=== PATIENT | female | born 2000 | race Asian ===

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

== ENCOUNTER 2022-04-16 10:55 | Emergency (ER) | payer OTHER, SELFPAY ==
[2022-04-16 10:56] VITALS: BP 106/73; PULSE 61; RESP 17; TEMP 36.7; O2SAT 99; BMI 20.5
--- NOTE | 2022-04-16 11:04 | ED.RN ---
PT CURRENTAY IN PERIOD. REPORTS ABD PAIN FEELS LIKE CRAMPING. FEELS SAME NORMAL PERIODS. PAIN GOES AWAY WITH ADVIL BUT DID NOT TAKE ANY TODAY.
--- NOTE | 2022-04-16 11:13 | EDS_ITS ---
HPI History of Present Illness Chief Complaint: Abd Pain Detail of Chief Complaint: Crampy abdominal pain Informant: patient Onset/Context/Timing Onset: Days Context: Sudden Onset Timing: Continuous and Waxes and wanes Quality: Crampy Location: Upper abdomen Current Severity: Mild Maximum Severity: Moderate Worsened by: Possibly menses Relieved by: Ibuprofen yesterday has not taken ibuprofen today Associated Symptoms Associated Symptoms: Mild nausea Narrative Narrative: Patient is a 21-year-old woman who presents with crampy abdominal pain. She denies food intolerance. She denies respiratory or cardiac symptoms. There is no known family history of cholelithiasis. She is presently on her menses. Menses started Saturday. She does get cramping pain with menses. She denies vaginal discharge. She denies diss urea, hematuria or frequency. Prior similar symptoms: No Recent Illness/Hospitalization: No PFSH PFSH Medical History Anxiety Depression Allergy/AdvReac Type Severity Reaction Status Date / Time No Known Allergies Allergy Verified 04/16/22 11:05 Family History no significant family his no significant family history Surgical History no surgical history no surgical history Social History (Updated 04/16/22 @ 11:[address] Moises Nugent MD) household members: family Smoking Status: Never smoker substance use type: does not use ROS ROS ED Constitutional Constitutional ED: Reports fever(s) and subjective; Denies chills, sweats or weight loss Eyes Eyes: Denies blurry vision, change in vision or diplopia ENT ENT ED: Denies ear pain, rhinorrhea or sore throat Cardiovascular Cardiovascular: Denies chest pain or palpitations Respiratory/Chest Respiratory/Chest: Denies cough, dyspnea or dyspnea on exertion Gastrointestinal Gastrointestinal: Reports abdominal pain and nausea; Denies constipation, diarrhea, melena or vomiting Genitourinary Genitourinary ED: Reports LMP (females 10-50) Details: Comment: (On menses.); Denies dysuria, hematuria or urinary frequency Musculoskeletal Musculoskeletal: Denies arthralgias, back pain, myalgias or neck pain Integumentary Denies abscess, Abrasions or rash Neurologic Neurologic: Denies paresthesias or weakness Hematologic/Lymphatic Hematologic/Lymphatic: Denies easy bleeding or easy bruising EXAM Physical Exam Const Vital Signs: 04/16/22 10:56 Temperature 98.1 F Temperature Source Oral Pulse Rate 61 Respiratory Rate 17 Blood Pressure 106/73 Blood Pressure Mean 84 Pulse Ox 99 Oxygen Delivery Method Room Air Positive well nourished and well developed General Appearance ED: well developed and NAD; Negative for cyanotic or diaphoretic HEENT Reports moist mucous membranes HEENT Narrative: Head is atraumatic normocephalic. Ears normal. Nares patent. Uvula is midline. There is no erythema or exudate the posterior pharynx. Eyes PERRL and EOMs intact bilaterally General Eye ED: Negative for pale conjunctiva or scleral icterus Neck no lymphadenopathy and supple Resp normal respiratory effort and clear to auscultation bilaterally Cardio regular rate, regular rhythm, S1 normal heart sound, S2 normal heart sound and no murmurs GI normal to inspection, nondistended, normoactive bowel sounds, non-tender, non- distended and no masses; Negative for hepatosplenomegaly Palpation: soft Back/Spine no CVA tenderness Extremity normal to inspection General Extremety ED: Negative for edema or tenderness General Extremity: Negative for edema Neuro oriented x3, CN's II-XII intact bilaterally and no sensory deficits noted Sensorium / Orientation: alert Psych mental status grossly normal Skin no rashes or lesions noted, no wounds and skin turgor normal MDM MDM MDM Narrative Medical decision making narrative: We will obtain test. Will obtain CBC to assess white count differential. Patient and father are refusing any blood work. Since patient has a benign exam and gets cramps when she is menstruating will allow patient to go home with appropriate home-going instructions Discharge Plan Triage Chief Complaint: Abd Pain ED Provider: Moises Nugent Dx/Rx/DC Orders Clinical Impression: Crampy pain associated with menses Instructions: ED MENSTRUAL CRAMPING Referrals: Maria C Sarmiento MD [Med Staff - Active Staff] - 3-5 Days if not improving Activity Restrictions/Additional Instructions: Take ibuprofen for menstrual cramps Disposition Disposition: Home, Self Care
--- NOTE | 2022-04-16 11:22 | ED.RN ---
PT DAD STATES ITS JUST HER PERIOD SHE FINE SHES COMPLETELY FINE. THIS NURSE EXPLAINED TO DAD THAT PT NEEDS TO MAKE DECISIONS FOR HER CARE D/T AGE. PT DECLINING IV AND BLOODWORK. DISCUSSED REASONING FOR ORDERS. CONTINUES TO DECLINE
--- NOTE | 2022-04-16 11:31 | NURSING ---
PT DECLINED LAB WORK. REPORTED TO DR SALEEM.
[2022-04-16 11:35] VITALS: BP 104/74; PULSE 62; RESP 20; O2SAT 98
== END 2022-04-16 11:38 | disposition home or self-care (01) ==
PROVIDERS: Emergency Provider Emergency Medicine; Visit Provider Emergency Medicine
DX: R10.9 Unspecified abdominal pain (principal)
CPT/HCPCS: 99284

== ENCOUNTER → 2025-05-21 | Outpatient (CLI) | payer MEDICAID, SELFPAY ==
--- NOTE | 2025-05-21 17:36 | CT_ITS ---
PROCEDURE: SOFT TISSUE NECK WITH CONTRAST 05/21/2025 REASON FOR EXAM: LOCALIZED SWELLING, MASS, AND LUMP OF NECK TECHNIQUE: Procedure Code: CTNEW Modality: CT Procedure: SOFT TISSUE NECK WITH CONTRAST CONTRAST: Isovue 370 VOLUME: 75 mL One or more dose reduction techniques were used (e.g., Automated exposure control, adjustment of the mA and/or kV according to patient size, use of iterative reconstruction technique). RADIATION DOSE SUMMARY: CTDlvol: 13.87 mGy DLP: 367.38 mGycm COMPARISON: None. FINDINGS: Airway: Midline and patent. Salivary glands: Unremarkable. Lymph nodes: No cervical lymphadenopathy. Thyroid: Unremarkable. Vasculature: Carotid arteries and internal jugular veins are unremarkable. Orbits: Unremarkable at visualized levels. Paranasal sinuses and mastoids: Grossly clear at visualized levels. Lung apices: Clear. Upper mediastinum: Visualized mediastinum is unremarkable. Bones: Unremarkable. Other: CT/Soft Tissue Neck WITH Contrast IMPRESSION: Unremarkable with the CT neck. Reading Location: [id number]
--- OUTSIDE RECORDS SUMMARY | 2025-05-21 17:37 | XMS RPT_ITS | CCD ---
Author Organization [facility] Care Team Providers Care Food Service Clerk Name Role Phone Sheets Anette THOMAS Primary Care Provider SHEETSANETTE Attending Unavailable SHEETS, ANETTE Ramirez Primary Care Unavailable Sheets Anette THOMAS Primary Care Provider SHEETS, ANETTE Ramirez Primary Care Unavailable ADRIANA GALEANO Attending Unavailable ALEXANDRA MEADOWS Referring Unavailable SHEETS, ANETTE Ramirez Primary Care Unavailable SHEETS, ANETTE Ramirez Primary Care Unavailable SHEETS, ANETTE Ramirez Primary Care Unavailable Medications Current Medications Medication Drug Class(es) Dates Sig (Normalized) Sig (Original) amoxicillin 875 mg / clavulanate 125 mg oral tablet (1 source) Penicillin-class Antibacterial Start: 06-11-2022 End: 06-18-2022 take 1 tablet by mouth twice daily amoxicillin-clavul anic acid (AUGMENTIN) 875-125 mg per tablet Indications: Post-nasal drainage Take 1 tablet by mouth twice daily for 7 days. 14 tablet 0 06/11/2022 06/18/2022 Active Comment on above: Take 1 tablet by [facility] twice daily for 7 days. ARIPiprazole 5 mg oral tablet (10 sources) Atypical Antipsychotic Start: 02-22-2022 take 1 tablet by mouth once daily ARIPiprazole (ABILIFY) 5 mg tablet Take 5 mg by mouth once daily. 02/22/2022 Active Comment on above: Take 5 mg by mouth o nce daily. benzonatate 100 mg oral capsule (1 source) Non-narcotic Antitussive Start: 01-18-2025 End: 01-25-2025 take 1 capsule by mouth every eight hours as needed benzonatate (TESSALON PERLE) 100 mg capsule Take 1 capsule by mouth three times a day as needed for cough for up to 7 days. 21 capsule 01/18/2025 01/25/2025 Active cetirizine hydrochloride 10 mg oral tablet (1 source) Histamine-1 Receptor Antagonist Start: 01-18-2025 End: 01-25-2025 take 1 tablet by mouth once daily cetirizine (ZYRTEC) 10 mg tablet Take 1 tablet by mouth once daily for 7 days. 7 tablet 01/18/2025 01/25/2025 Active ibuprofen 400 mg oral tablet (4 sources) Nonsteroidal Anti-inflammatory Drug Start: 10-30-2024 End: 10-30-2024 take 1 tablet by mouth every eight hours as needed ibuprofen (MOTRIN) 400 mg tablet Take 1 tablet by mouth every 8 hours as needed for pain or fever (specify temp.) (menstrual cramps, headache). 30 tablet 11 10/30/2024 Active predniSONE 20 mg oral tablet (1 source) Start: 07-16-2024 End: 07-21-2024 take 2 tablets by mouth once daily predniSONE (DELTASONE) 20 mg tablet Indications: Laryngitis Take 2 tablets by mouth once daily for 5 days. 10 tablet 07/16/2024 07/21/2024 Active Completed/Discontinued Medications Medication Drug Class(es) Dates Sig (Normalized) Sig (Original) doxycycline hyclate 100 mg oral tablet (1 source) Tetracycline-clas s Drug Start: 10-01-2023 End: 10-08-2023 take 1 tablet by mouth twice daily doxycycline (VIBRA-TABS) 100 mg tablet Take 1 tablet by mouth two times a day for 7 days. 14 tablet 10/01/2023 10/08/2023 Problems Problem Classification Problem Date Documented Da te Episodic/Chronic Anxiety disorders (1 source) Generalized anxiety disorder; Translations: [Generalized anxiety disorder] Chronic Disorders usually diagnosed in infancy, childhood, or adolescence (1 source) Tic disorder; Translations: [Tic disorder, unspecified] Chronic Genitourinary symptoms and ill-defined conditions (1 source) Intermittent urinary incontinence; Translations: [Unspecified urinary incontinence] Chronic Menstrual disorders (1 source) Menstrual cramp; Translations: [Dysmenorrhea, unspecified] Chronic Other lower respiratory disease (3 sources) Cough; Translations: [Acute cough] Episodic Other upper respiratory infections (5 sources) Nasal discharge; Translations: [Postnasal drip] Onset: 01-18-2025 Episodic Unclassified (1 source) Post-viral cough syndrome; Translations: [Post-viral cough syndrome] Onset: 07-16-2024 Viral infection (1 source) Viral disease; Translations: [Viral infection, unspecified] 07-13-2024 Episodic Results Test Name Value Interpretation Reference Range Facility CNOVon 01-18-2025 CNOV Office Visit ([facility] ) LAILA RAMEY ([id number]) 2 F Date Time Provider Department 01/18/25 1:45 PM ADRIANA GALEANO [facility] During your visit today, we recorded the following information about you: Temperature Pulse Respiration Blood pressure 98.5 degrees 96/minute 16/minute 102/64 Weight 59.7 kg Adriana Galeano, KRISHAN.SMELLER 01/18/2025 1:46 PM Signed [facility] Subjective Laila Ramey is a 24 year old female. Patient presents with: Nasal Congestion: drainage, productive cough x 5 days HPI Nontoxic-appearing 24-year-old female presents urgent care chief complaint cough sinus drainage fatigue. Duration of symptoms 5 days. Associated symptoms listed above. Most bothersome symptom today is cough. OTC medications none. Sick contacts unknown. No chest pain shortness pleuritic pain. No fevers. Is not . Is not breast-feeding past medical history prescription medications allergies reviewed Review of Systems Constitutional: Negative for chills, diaphoresis, fatigue and fever. HENT: Positive for congestion, rhinorrhea and sore throat. Negative for drooling, ear discharge, ear pain, sinus pressure, sinus pain, sneezing and trouble swallowing. Eyes: Negative for pain, discharge, redness, itching and visual disturbance. Respiratory: Positive for cough. Negative for chest tightness, shortness of breath and wheezing. Cardiovascular: Negative for chest pain. Gastrointestinal: Negative for abdominal distention, abdominal pain, blood in stool, constipation, diarrhea, nausea and vomiting. Genitourinary: Negative for difficulty urinating and dysuria. Musculoskeletal: Negative for arthralgias, joint swelling, neck pain and neck stiffness. Skin: Negative for rash. Neurological: Positive for headaches. Negative for dizziness, weakness and numbness. Objective BP 102/64 Pulse 96 Temp 36.9 ?C (98.5 ?F) Resp 16 Wt 59.7 kg (131 lb 9.8 oz) SpO2 98% BMI 24.47 kg/m? Physical Exam Constitutional: Appearance: Normal appearance. HENT: Head: Normocephalic. Jaw: No trismus, tenderness, swelling or pain on movement. Right Ear: Tympanic membrane, ear canal and external ear normal. Left Ear: Tympanic membrane, ear canal and external ear normal. Nose: Congestion present. Mouth/Throat: Mouth: Mucous membranes are moist. Pharynx: Oropharynx is clear. Uvula midline. No oropharyngeal exudate or posterior oropharyngeal erythema. Eyes: Conjunctiva/sclera: Conjunctivae normal. Cardiovascular: Rate and Rhythm: Normal rate. Pulmonary: Effort: Pulmonary effort is normal. Breath sounds: Normal breath sounds. No wheezing, rhonchi or rales. Abdominal: Palpations: Abdomen is soft. Tenderness: There is no abdominal tenderness. There is no guarding or rebound. Musculoskeletal: General: Normal range of motion. Cervical back: Normal range of motion and neck supple. No edema or erythema. No pain with movement. Normal range of motion. Lymphadenopathy: Cervical: No cervical adenopathy. Skin: General: Skin is warm. Findings: No rash. Neurological: General: No focal deficit present. Mental Status: She is alert and oriented to person, place, and time. Mental status is at baseline. {ASSESSMENT/PLAN: 1. URI with cough and congestion - ICD9: 465.9, ICD10: J06.9 - Discussed viral etiology and rationale for treatment. - Symptomatic treatment with prn analgesia - Supportive care with fluids and rest No evidence of bacterial infection noted on today's assessment. Treat as viral etiology. Patient was educated on supportive therapies. Patient will follow up with primary care provider as needed. Patient was instructed to immediately proceed to emergency room for any new, worsening, or symptoms lasting longer than anticipated. The patient's clinical presentation is otherwise unremarkable at this time. Based on exam and clinical finding, the patient is stable for discharge. Plan of care was discussed with patient. Patient verbalizes understanding and agrees to plan of care. This note was generated using [employer] software. It may contain errors in wording, punctuation, or spelling. Adriana Galeano APRN.SMELLER History and Record Review Clinical information obtained from an independent historian. History obtained from or confirmed by: parent. External record(s) reviewed: prior outpatient record. Disposition The patient was discharged. OTC Medications were advised: Procedures Allergies As of Date: 01/18/2025 (No Known Allergies) Date Reviewed: 01/18/2025 Reviewed by: Adriana Galeano APRN.SMELLER - Fully Assessed Reason for Visit: Nasal Congestion [235] Cmt: drainage, productive cough x 5 days Primary Visit Diagnosis:URI with cough and congestion [J06.9] Order(s):cetirizine (ZYRTEC) 10 mg tabletTake 1 tablet by mouth once daily for 7 days.Disp: 7 tabletRfl: 0 (more content not included)... Normal [facility] CNOVon 10-30-2024 CNOV Office Visit (ABELARDO RO) LAILA RAMEY ([id number]) 2 F Date Time Provider Department 10/30/24 10:00 AM ANETTE REID During your visit today, we recorded the following information about you: Temperature Pulse Respiration Blood pressure 98 degrees 82/minute 16/minute 98/60 Weight Height 54.4 kg 1.562 m Anette Reid DO 11/17/2024 7:21 PM Signed SUBJECTIVE: 23 year old female for annual checkup. I have fully reviewed the past medical, surgical, social and family history and updated the Histories section of [employer]. Pt is here with her fdc caregiver. She is not sexually active She has requested an OTC analgesic for headaches or menstrual cramping She has a history of wetting the bed, but that has resolved Pt does not want to get bloodwork. ALLERGIES No Known Allergies Current Outpatient Medications Medication Sig Dispense Refill ARIPiprazole (ABILIFY) 5 mg tablet Take 5 mg by mouth once daily. No current facility-administered medications for this visit. There is no problem list on file for this patient. Social History Tobacco Use Smoking status: Never Smokeless tobacco: Never Vaping Use Vaping status: Never Used Substance Use Topics Alcohol use: Never Drug use: Never History reviewed. No pertinent family history. Reviewed past medical history, family history and surgeries. All medications and supplements were reviewed with the patient. REVIEW OF SYSTEMS GENERAL: No weight loss, malaise or fevers HEENT: Negative for frequent or significant headaches, No changes in hearing or vision, no nose bleeds or other nasal problems NECK: Negative for lumps, goiter, pain and significant neck swelling RESPIRATORY: Negative for cough, hemoptysis, wheezing, COPD, dyspnea or shortness of breath CARDIOVASCULAR: Negative for chest pain, leg swelling, hypertension, CHF or palpitations GI: No nausea, vomiting, or diarrhea : No history of dysuria, frequency or incontinence MUSCULOSKELETAL: Negative for joint pain or swelling, back pain or muscle pain SKIN: Negative for lesions, rash, and itching PSYCH: Negative for sleep disturbance, mood disorder and recent psychosocial stressors HEMATOLOGY/LYMPHOLOGY: Negative for prolonged bleeding, bruising easily or swollen nodes ENDOCRINE: Negative for cold or heat intolerance, polyuria, polydipsia and goiter NEURO: No history of headaches, syncope, paralysis, seizures or tremors PHYSICAL EXAMINATION: BP 98/60 Pulse 82 Temp 36.7 ?C (98 ?F) Resp 16 Ht 156.2 cm (5' 1.5") Wt 54.4 kg (120 lb) SpO2 97% BMI 22.31 kg/m? General appearance: Well appearing, alert, in no acute distress, well-hydrated, well nourished. Skin: Skin color, texture, turgor normal, no suspicious rashes or lesions Head: Normocephalic, no masses, lesions, tenderness or abnormalities Eyes: Anicteric sclera. Pupils are equally round and reactive to light. Extraocular movements are intact. Ears: External ears normal, canals clear Nose/Sinuses: Nares normal, septum midline, mucosa normal, no drainage or sinus tenderness Oropharynx: Lips, mucosa, and tongue normal, teeth and gums normal, oropharynx normal Neck: Supple, no adenopathy; thyroid symmetric, normal size, no bruits Back: Normal exam Lungs: Lungs clear to auscultation. No wheezing, rhonchi, rales. Heart: RRR without murmur, gallop, or rubs. No ectopy Abdomen: Normal abdominal exam, Abdomen soft, non-tender. Bowel sounds normal. No masses, organomegaly Extremities: No deformities, edema, skin discoloration, clubbing or cyanosis. Good capillary refill. Musculoskeletal: No joint swelling, deformity, or tenderness Peripheral pulses: Normal Neuro: Gait normal. Reflexes normal and symmetric. Sensation grossly intact. ASSESSMENT/PLAN: 1. Well adult exam - ICD9: V70.0, ICD10: Z00.00 - Counseled on healthy diet and regular exercise Anette Reid DO Allergies As of Date: 10/30/2024 (No Known Allergies) Date Reviewed: 10/30/2024 Reviewed by: Anette Reid DO - Fully Assessed Reason for Visit: Well Adult [611] Primary Visit Diagnosis:Well adult exam [Z00.00] Order(s):ibuprofen (MOTRIN) 400 mg tabletTake 1 tablet by mouth every 8 hours as needed for pain or fever (specify temp.) (menstrual cramps, headache).Disp: 30 tabletRfl: 11 Prescriptions as of 11/17/2024 - ibuprofen (MOTRIN) 400 mg tablet Take 1 tablet by mouth every 8 hours as needed for pain or fever (specify temp.) (menstrual cramps, headache). - ARIPiprazole (ABILIFY) 5 mg tablet Take 5 mg by mouth once daily. Problem List As Of Date: 10/30/2024 (None) Prescriptions ordered this encounter Disp Refills Start End IBUPROFEN 400 MG TABLET 30 t* 11 10/30/2024 10/30/2024 Class: Print RX Route: ORAL Sig: Take 1 tablet by mouth every 8 hours as needed for pain or fever (specify temp.) (more content not included)... Normal [facility] [place] 10-28-2024 KE Telephone (ANASTASIA) LAILA RAMEY ([id number]) 2 F Date Time Provider Department 10/28/24 ANETTE REID During your visit today, we recorded the following information about you: Nola Bhatti MA 10/28/2024 12:39 PM Signed Mireille caregiver for patient left message requesting a prn order for either tylenol or advil for patient. Please advise. JASON Tesfaye Kimberly C, DO 10/29/2024 8:12 PM Signed Please call - I cannot put in orders because pt has not been seen in over 2 years. She will need to make an appt for me to give orders DO Sumeet Gonzalez Mary, MA 10/30/2024 7:27 AM Signed Please help assist with scheduling appointment. Thank you. Allergies As of Date: 10/28/2024 (No Known Allergies) Date Reviewed: 07/16/2024 Reviewed by: Joya Kohler MA - Fully Assessed Reason for Visit: Patient Question [1477] Prescriptions as of 12/04/2024 - ibuprofen (MOTRIN) 400 mg tablet Take 1 tablet by mouth every 8 hours as needed for pain or fever (specify temp.) (menstrual cramps, headache). - ARIPiprazole (ABILIFY) 5 mg tablet Take 5 mg by mouth once daily. Problem List As Of Date: 10/28/2024 (None) Encounter Status:Closed by NOLA BHATTI on 12/04/24 [facility] [place] 07-24-2024 CNPN Telephone (4CQ) LAILA RAMEY ([id number]) 2 F Date Time Provider Department 07/24/24 AJ THORPE 4CQ During your visit today, we recorded the following information about you: Inna Pugh 07/24/2024 9:26 AM Signed Pt is requesting school excuse for today. Please advise. Patient can pic up. Aj Thorpe APRN.CNP 07/24/2024 10:14 AM Signed Patient was seen 8 days ago? No note. Either needs seen or may contact pcp. Izzy Cottrell MA 07/24/2024 12:19 PM Signed Spoke with patient and advised that if she is still having persistent symptoms from what she was being seen for in [facility] from 8 days ago that she needs to see her PCP to be reevaluated, and she states she no longer needs school note. Izzy Cottrell MA Allergies As of Date: 07/24/2024 (No Known Allergies) Date Reviewed: 07/16/2024 Reviewed by: Joya Kohler MA - Fully Assessed Reason for Visit: Patient Question [1477] Prescriptions as of 07/24/2024 - ARIPiprazole (ABILIFY) 5 mg tablet Take 5 mg by mouth once daily. Problem List As Of Date: 07/24/2024 (None) Encounter Status:Closed by IZZY COTTRELL on 07/24/24 [facility] CNOVon 07-16-2024 CNOV Office Visit ([facility] ) LAILA RAMEY ([id number]) 2 F Date Time Provider Department 07/16/24 9:30 AM AJ THORPE UCLANIE During your visit today, we recorded the following information about you: Temperature Pulse Respiration Blood pressure 98.5 degrees 89/minute 16/minute 106/75 Weight 54.6 kg Aj Thorpe APRN.CNP 07/16/2024 10:02 AM Signed Subjective HPI HPI Laila Ramey is a 23 year old female who presents today for CC of cough, loss of voice. This started few days ago. Has tried otc medication for relief. Symptoms are worsened by nothing. Negative strep 3 days ago. Nonsmoker. Denies possibility of being . Reports having all childhood vaccinations. .Patient presents with: Cough: With sore throat, congestion AND difficulty speaking x 2 weeks No past medical history on file. No past surgical history on file. ALLERGIES Patient has no known allergies. MEDICATIONS ARIPiprazole (ABILIFY) 5 mg tablet Take 5 mg by mouth once daily. No family history on file. Social History Tobacco Use Smoking status: Never Smokeless tobacco: Never Substance Use Topics Alcohol use: Never Drug use: Never Review of Systems Constitutional: Negative for fever. HENT: Positive for congestion and sore throat. Negative for ear pain and nosebleeds. Respiratory: Positive for cough. Negative for shortness of breath and wheezing. Musculoskeletal: Negative for neck pain. Objective Blood pressure 106/75, pulse 89, temperature 36.9 ?C (98.5 ?F), temperature source Left Tympanic, resp. rate 16, weight 54.6 kg (120 lb 5.9 oz), SpO2 98%. Physical Exam Constitutional: General: She is not in acute distress. Appearance: She is not toxic-appearing or diaphoretic. HENT: Head: Normocephalic and atraumatic. Comments: Notable laryngitis. Right Ear: Hearing, tympanic membrane, ear canal and external ear normal. Left Ear: Hearing, tympanic membrane, ear canal and external ear normal. Nose: Nose normal. Mouth/Throat: Pharynx: Uvula midline. No pharyngeal swelling, oropharyngeal exudate, posterior oropharyngeal erythema or uvula swelling. Eyes: General: Lids are normal. No scleral icterus. Right eye: No discharge. Left eye: No discharge. Conjunctiva/sclera: Conjunctivae normal. Pupils: Pupils are equal, round, and reactive to light. Neck: Trachea: Trachea normal. Cardiovascular: Rate and Rhythm: Normal rate and regular rhythm. Heart sounds: Normal heart sounds. Pulmonary: Effort: Pulmonary effort is normal. Breath sounds: Normal breath sounds. Musculoskeletal: Cervical back: Normal range of motion and neck supple. Lymphadenopathy: Cervical: No cervical adenopathy. Right cervical: No superficial cervical adenopathy. Left cervical: No superficial cervical adenopathy. Skin: Findings: No rash. Neurological: Mental Status: She is alert and oriented to person, place, and time. ASSESSMENT/PLAN: 1. Laryngitis - ICD9: 464.00, ICD10: J04.0 (primary diagnosis) Viral Try steroid F/u with pcp for continued s/s - PREDNISONE 20 MG TABLET 2. Subacute cough - ICD9: 786.2, ICD10: R05.2 Declines xray, try steroid. - XR CHEST 2V FRONTAL/LAT - declined. Aj Thorpe, CROP DUSTER.SMELLER Allergies As of Date: 07/16/2024 (No Known Allergies) Date Reviewed: 07/16/2024 Reviewed by: Joya Kohler MA - Fully Assessed Reason for Visit: Cough [28] Cmt: With sore throat, congestion AND difficulty speaking x 2 weeks Primary Visit Diagnosis:Laryngitis [J04.0] Other Visit Diagnosis:Subacute cough [R05.2] Order(s):predniSONE (DELTASONE) 20 mg tabletTake 2 tablets by mouth once daily for 5 days.Disp: 10 tabletRfl: 0 Prescriptions as of 07/16/2024 - predniSONE (DELTASONE) 20 mg tablet Take 2 tablets by mouth once daily for 5 days. - ARIPiprazole (ABILIFY) 5 mg tablet Take 5 mg by mouth once daily. Problem List As Of Date: 07/16/2024 (None) Prescriptions ordered this encounter Disp Refills Start End PREDNISONE 20 MG TABLET 10 t* 0 07/16/2024 07/21/2024 Route: ORAL Sig: Take 2 tablets by mouth once daily for 5 days. Encounter Status:Closed by AJ THORPE on 07/16/24 [facility] [place] 07-13-2024 CNOV Office Visit ([facility] ) LAILA RAMEY ([id number]) 2 F Date Time Provider Department 07/13/24 5:15 PM ADRIANA GALEANO [facility] During your visit today, we recorded the following information about you: Temperature Pulse Respiration Blood pressure 98.5 degrees 105/minute 18/minute 110/78 Weight 53.6 kg Adriana GaleanoSHEY 07/13/2024 4:52 PM Signed Subjective HPI Nontoxic-appearing female presents urgent care chief complaint sore throat cough. Duration of symptoms 2 days. Associated symptoms listed above. Presents today for evaluation. Most prominent symptom today is pharyngitis. OTC medications none. Sick contact similar signs symptoms. Denies any difficulty fevers swallowing and secretion decreased range of motion of neck or trismus. Denies chance of . Is not breast-feeding. Past medical history prescription medications allergies reviewed. .Patient presents with: Sore Throat: ST and cough x 2 days History reviewed. No pertinent past medical history. No past surgical history on file. ALLERGIES Patient has no known allergies. MEDICATIONS ARIPiprazole (ABILIFY) 5 mg tablet Take 5 mg by mouth once daily. No family history on file. Social History Tobacco Use Smoking status: Never Smokeless tobacco: Never Substance Use Topics Alcohol use: Never Drug use: Never BP 110/78 Pulse 105 Temp 36.9 ?C (98.5 ?F) (Tympanic) Resp 18 Wt 53.6 kg (118 lb 2.7 oz) SpO2 100% BMI 21.61 kg/m? Review of Systems Constitutional: Negative for chills, fever and malaise/fatigue. HENT: Positive for sore throat. Negative for congestion, ear discharge, ear pain and sinus pain. Eyes: Negative for blurred vision, pain, discharge and redness. Respiratory: Positive for cough. Negative for hemoptysis, sputum production, shortness of breath, wheezing and stridor. Cardiovascular: Negative for chest pain. Gastrointestinal: Negative for abdominal pain, diarrhea, nausea and vomiting. Musculoskeletal: Negative for myalgias. Skin: Negative for itching and rash. Neurological: Negative for dizziness and headaches. Objective Physical Exam Constitutional: General: She is not in acute distress. Appearance: She is not diaphoretic. HENT: Head: Normocephalic. Jaw: No trismus, tenderness, swelling or pain on movement. Right Ear: Tympanic membrane, ear canal and external ear normal. Left Ear: Tympanic membrane, ear canal and external ear normal. Mouth/Throat: Mouth: Mucous membranes are moist. Pharynx: Oropharynx is clear. Uvula midline. No pharyngeal swelling, oropharyngeal exudate, posterior oropharyngeal erythema or uvula swelling. Tonsils: No tonsillar exudate or tonsillar abscesses. Eyes: Conjunctiva/sclera: Conjunctivae normal. Pupils: Pupils are equal, round, and reactive to light. Cardiovascular: Rate and Rhythm: Normal rate and regular rhythm. Heart sounds: Normal heart sounds. Pulmonary: Effort: Pulmonary effort is normal. No tachypnea, accessory muscle usage or respiratory distress. Breath sounds: Normal breath sounds. No stridor. No wheezing, rhonchi or rales. Abdominal: General: There is no distension. Palpations: Abdomen is soft. Tenderness: There is no abdominal tenderness. There is no guarding or rebound. Musculoskeletal: Cervical back: Normal range of motion and neck supple. No edema, erythema, rigidity or tenderness. No pain with movement. Normal range of motion. Lymphadenopathy: Cervical: No cervical adenopathy. Skin: General: Skin is warm and dry. Neurological: Mental Status: She is alert and oriented to person, place, and time. ASSESSMENT/PLAN: 1. Sore throat - ICD9: 462, ICD10: J02.9 (primary diagnosis) - STREP A MOLECULAR (POC) 2. Viral illness - ICD9: 079.99, ICD10: B34.9 - Discussed viral etiology and rationale for treatment. - Rapid strep negative in office today - Symptomatic treatment with prn analgesia - Supportive care with fluids and rest No evidence of bacterial infection. Treat as viral pharyngitis Patient was educated on supportive therapies. Patient will follow up with primary care provider as needed. Patient was instructed to immediately proceed to emergency room for any new, worsening, or symptoms lasting longer than anticipated. The patient's clinical presentation is otherwise unremarkable at this time. Based on exam and clinical finding, the patient is stable for discharge. Plan of care was discussed with patient. Patient verbalizes understanding and agrees to plan of care. This note was generated using [employer] software. It may contain errors in wording, punctuation, or spelling. Adriana Galeano APRN.Adriana Membreno APRN.TIA 07/13/2024 4:47 PM Signed [facility] PATIENT INFO PHARYNGITIS OVERVIEW A sore throat (pharyngitis) is a common problem, and usually is caused by a viral or bacte (more content not included)... Normal [facility] STREP A MOLECULAR (POC)on Procedural Control Valid [facility] Strep A (POCT) Negative Negative [facility] XR Chest PA and Lateralon IMPRESSION: No acute findings. Scrap Metal Collector: PSCPhilipp Transcribe Date/Time: Oct 01 2023 3:01P Dictated by : BENITO VICTORIA MD This examination was interpreted and the report reviewed and electronically signed by: BENITO VICTORIA MD on Oct 01 2023 3:02PM [facility] DIVISION OF RADIOLOGY * * *Final Report* * * DATE OF EXAM: Oct 01 2023 3:02PM WOX 5291 - XR CHEST 2V FRONTAL/LAT / PROCEDURE REASON: Subacute cough * * * * Physician Interpretation * * * * EXAM TITLE: XR CHEST 2V FRONTAL/LAT EXAM DATE/TIME: 10/01/2023 3:02 PM COMPARISON: None. CLINICAL INDICATION/HISTORY: Cough RESULT: Lines, tubes, and devices: None. Lungs and pleura: Symmetric round opacities projecting over the lower lungs likely representing nipple shadows. No consolidation. No lung mass. No pleural effusion or pneumothorax. Cardiomediastinal silhouette: Normal cardiomediastinal silhouette. Other: None. DIVISION OF RADIOLOGY Provider, [facility] - 10/01/2023 * * *Final Report* * * DATE OF EXAM: Oct 01 2023 3:02PM WOX 5291 - XR CHEST 2V FRONTAL/LAT / PROCEDURE REASON: Subacute cough * * * * Physician Interpretation * * * * EXAM TITLE: XR CHEST 2V FRONTAL/LAT EXAM DATE/TIME: 10/01/2023 3:02 PM COMPARISON: None. CLINICAL INDICATION/HISTORY: Cough RESULT: Lines, tubes, and devices: None. Lungs and pleura: Symmetric round opacities projecting over the lower lungs likely representing nipple shadows. No consolidation. No lung mass. No pleural effusion or pneumothorax. Cardiomediastinal silhouette: Normal cardiomediastinal silhouette. Other: None. IMPRESSION IMPRESSION: No acute findings. Scrap Metal Collector: MANUEL Transcribe Date/Time: Oct 01 2023 3:01P Dictated by : BENITO VICTORIA MD This examination was interpreted and the report reviewed and electronically signed by: BENITO VICTORIA MD on Oct 01 2023 3:02PM EST [facility] Radiology Study observation (narrative) [facility] XR Chest PA and LateralOrder ed By: [facility] Provider on 10-01-2023 [facility] 100.0100on 04-16-2022 L Normal [facility] Comment on above: Result Comment: SHA ENT DEPARTED ER. Performed By: #### 5 7021-8, CMP, L500.4050, 2110-5, L700.6800, L100.0100 #### [facility] [address] [place], [place], [id number] Result Comment: SHA ENT DISCHARGED-NO SPECIMEN REC'D LN Normal 15-37 [facility] Comment on above: Result Comment: SHA ENT DEPARTED ER. PATIENT DEPARTED ER. Performed By: #### 5 7021-8, CMP, L500.4050, 2110-5, L700.6800, L100.0100 #### [facility] [address] [place], [place], [id number] Result Comment: SHA ENT DISCHARGED-NO SPECIMEN REC'D 500.4050on 04-16-2022 Albumin [Mass/Vol] Normal 3.2-5.0 [facility] Comment on above: Result Comment: SHA ENT DISCHARGED-NO SPECIMEN REC'D Performed By: #### 5 7021-8, CMP, L500.4050, 2110-5, L700.6800, L100.0100 #### [facility] [address] [place], [place], [id number] ALP [Catalytic activity/Vol] Normal 45-117 [facility] Comment on above: Result Comment: SHA ENT DISCHARGED-NO SPECIMEN REC'D Performed By: #### 5 7021-8, CMP, L500.4050, 2110-5, L700.6800, L100.0100 #### [facility] [address] [place], [address] ALT [Catalytic activity/Vol] Normal 13-56 [facility] Comment on above: Result Comment: SHA ENT DISCHARGED-NO SPECIMEN REC'D Performed By: #### 5 7021-8, CMP, L500.4050, 2110-5, L700.6800, L100.0100 #### [facility] [address] [place], [address] Anion gap [Moles/Vol] Normal 5-15 [facility] Comment on above: Result Comment: SHA ENT DISCHARGED-NO SPECIMEN REC'D Performed By: #### 5 7021-8, CMP, L500.4050, 2110-5, L700.6800, L100.0100 #### [facility] [address] [place], [address] Calcium [Mass/Vol] Normal 8.5-10.1 [facility] Comment on above: Result Comment: SHA ENT DISCHARGED-NO SPECIMEN REC'D Performed By: #### 5 7021-8, CMP, L500.4050, 2110-5, L700.6800, L100.0100 #### [facility] [address] [place], [address] Chloride [Moles/Vol] Normal 98-107 [facility] Comment on above: Result Comment: SHA ENT DISCHARGED-NO SPECIMEN REC'D Performed By: #### 5 7021-8, CMP, L500.4050, 2110-5, L700.6800, L100.0100 #### [facility] [address] [place], [address] CO2 [Moles/Vol] Normal 21.0-32.0 [facility] Comment on above: Result Comment: SHA ENT DISCHARGED-NO SPECIMEN REC'D Performed By: #### 5 7021-8, CMP, L500.4050, 2110-5, L700.6800, L100.0100 #### [facility] [address] [place], [address] Creatinine [Moles/Vol] Normal 0.55-1.02 [facility] Comment on above: Result Comment: SHA ENT DISCHARGED-NO SPECIMEN REC'D Performed By: #### 5 7021-8, CMP, L500.4050, 2110-5, L700.6800, L100.0100 #### [facility] [address] [place], [address] GFR/1.73 sq M.predicted among non-blacks MDRD (S/P/Bld) [Vol rate/Area] Normal >60 [facility] Comment on above: Result Comment: SHA ENT DISCHARGED-NO SPECIMEN REC'D Performed By: #### 5 7021-8, CMP, L500.4050, 0-5, L700.6800, L100.0100 #### [facility] [address] [place], [address] Glucose [Mass/Vol] Normal 74-106 [facility] Comment on above: Result Comment: SHA ENT DISCHARGED-NO SPECIMEN REC'D Performed By: #### 5 7021-8, CMP, L500.4050, 2110-5, L700.6800, L100.0100 #### [facility] [address] [place], [address] Potassium [Moles/Vol] Normal 3.5-5.1 [facility] Comment on above: Result Comment: SHA ENT DISCHARGED-NO SPECIMEN REC'D Performed By: #### 5 7021-8, CMP, L500.4050, 2110-5, L700.6800, L100.0100 #### [facility] [address] [place], [address] Sodium [Moles/Vol] Normal 136-145 [facility] Comment on above: Result Comment: SHA ENT DISCHARGED-NO SPECIMEN REC'D Performed By: #### 5 7021-8, CMP, L500.4050, 2110-5, L700.6800, L100.0100 #### [facility] [address] [place], [address] Urea nitrogen [Mass/Vol] Normal 7-18 [facility] Comment on above: Result Comment: SHA ENT DISCHARGED-NO SPECIMEN REC'D Performed By: #### 5 7021-8, CMP, L500.4050, 2110-5, L700.6800, L100.0100 #### [facility] [address] [place], [address] 700.6800on 04-16-2022 Beta HCG ( test) Ql Normal [facility] Comment on above: Result Comment: SHA ENT DISCHARGED-NO SPECIMEN REC'D Performed By: #### 5 7021-8, CMP, L500.4050, 0-5, L700.6800, L100.0100 #### [facility] [address] [place], [address] CBC W Auto Differential pane l (Bld)on 04-16-2022 Hematocrit (Bld) [Volume fraction] Normal 37-47 [facility] Comment on above: Result Comment: SHA ENT DEPARTED ER. Performed By: #### 5 7021-8, CMP, L500.4050, 0-5, L700.6800, L100.0100 #### [facility] [address] [place], [address] Hemoglobin (Bld) [Mass/Vol] Normal 12.0-15.0 [facility] Comment on above: Result Comment: SHA ENT DEPARTED ER. Performed By: #### 5 7021-8, CMP, L500.4050, 2110-5, L700.6800, L100.0100 #### [facility] [address] [place], [address] MCHC (RBC) [Mass/Vol] Normal 32-36 [facility] Comment on above: Result Comment: SHA ENT DEPARTED ER. Performed By: #### 5 7021-8, CMP, L500.4050, 2110-5, L700.6800, L100.0100 #### [facility] [address] [place], [address] Platelets (Bld) [#/Vol] Normal 150-450 [facility] Comment on above: Result Comment: SHA ENT DEPARTED ER. Performed By: #### 5 7021-8, CMP, L500.4050, 2110-5, L700.6800, L100.0100 #### [facility] [address] [place], [address] RBC (Bld) [#/Vol] Normal 4.2-5.4 [facility] Comment on above: Result Comment: SHA ENT DEPARTED ER. Performed By: #### 5 7021-8, CMP, L500.4050, 2110-5, L700.6800, L100.0100 #### [facility] [address] [place], [address] WBC (Bld) [#/Vol] Normal 4.4-11.0 [facility] Comment on above: Result Comment: SHA ENT DEPARTED ER. Performed By: #### 5 7021-8, CMP, L500.4050, 2110-5, L700.6800, L100.0100 #### [facility] [address] [place], [address] CBC W/Diff, Automatedon 04-02 Absolute Neut Normal 2.0-7.7 [facility] Comment on above: Result Comment: SHA ENT DEPARTED ER. Performed By: #### 5 7021-8, CMP, L500.4050, 2110-5, L700.6800, L100.0100 #### [facility] [address] [place], [address] HCT Normal 37-47 [facility] Comment on above: Result Comment: SHA ENT DEPARTED ER. Performed By: #### 5 7021-8, CMP, L500.4050, 2110-5, L700.6800, L100.0100 #### [facility] [address] [place], [address] HGB Normal 12.0-15.0 [facility] Comment on above: Result Comment: SHA ENT DEPARTED ER. Performed By: #### 5 7021-8, CMP, L500.4050, 2110-5, L700.6800, L100.0100 #### [facility] [address] [place], [address] MCH Normal 27.0-32.0 [facility] Comment on above: Result Comment: SHA ENT DEPARTED ER. Performed By: #### 5 7021-8, CMP, L500.4050, 2110-5, L700.6800, L100.0100 #### [facility] [address] [place], [address] MCHC Normal 32-36 [facility] Comment on above: Result Comment: SHA ENT DEPARTED ER. Performed By: #### 5 7021-8, CMP, L500.4050, 2110-5, L700.6800, L100.0100 #### [facility] [address] [place], [address] MCV Normal 81-99 [facility] Comment on above: Result Comment: SHA ENT DEPARTED ER. Performed By: #### 5 7021-8, CMP, L500.4050, 2110-5, L700.6800, L100.0100 #### [facility] [address] [place], [address] NEUT% Normal 47-70 [facility] Comment on above: Result Comment: SHA ENT DEPARTED ER. Performed By: #### 5 7021-8, CMP, L500.4050, 2110-5, L700.6800, L100.0100 #### [facility] [address] [place], [address] PLT Normal 150-450 [facility] Comment on above: Result Comment: SHA ENT DEPARTED ER. Performed By: #### 5 7021-8, CMP, L500.4050, 2110-5, L700.6800, L100.0100 #### [facility] [address] [place], [address] RBC Normal 4.2-5.4 [facility] Comment on above: Result Comment: SHA ENT DEPARTED ER. Performed By: #### 5 7021-8, CMP, L500.4050, 2110-5, L700.6800, L100.0100 #### [facility] [address] [place], [address] RDW CV Normal 11.6-14.6 [facility] Comment on above: Result Comment: SHA ENT DEPARTED ER. Performed By: #### 5 7021-8, CMP, L500.4050, 2110-5, L700.6800, L100.0100 #### [facility] [address] [place], [address] RDW SD Normal 35.1-43.9 [facility] Comment on above: Result Comment: SHA ENT DEPARTED ER. Performed By: #### 5 7021-8, CMP, L500.4050, 2110-5, L700.6800, L100.0100 #### [facility] [address] [place], [address] WBC Normal 4.4-11.0 [facility] Comment on above: Result Comment: SHA ENT DEPARTED ER. Performed By: #### 5 7021-8, CMP, L500.4050, 2110-5, L700.6800, L100.0100 #### [facility] [address] [place], [address] Comprehensive Metabolic Prof ole 04-16-2022 ALB Normal 3.2-5.0 [facility] Comment on above: Result Comment: SHA ENT DISCHARGED-NO SPECIMEN REC'D Performed By: #### 5 7021-8, CMP, L500.4050, 2110-5, L700.6800, L100.0100 #### [facility] [address] [place], [address] ALK P Normal 45-117 [facility] Comment on above: Result Comment: SHA ENT DISCHARGED-NO SPECIMEN REC'D Performed By: #### 5 7021-8, CMP, L500.4050, 2110-5, L700.6800, L100.0100 #### [facility] [address] [place], [address] ALT Normal 13-56 [facility] Comment on above: Result Comment: SHA ENT DISCHARGED-NO SPECIMEN REC'D Performed By: #### 5 7021-8, CMP, L500.4050, 2110-5, L700.6800, L100.0100 #### [facility] [address] [place], [address] AST Normal 15-37 [facility] Comment on above: Result Comment: SHA ENT DISCHARGED-NO SPECIMEN REC'D Performed By: #### 5 7021-8, CMP, L500.4050, 2110-5, L700.6800, L100.0100 #### [facility] [address] [place], [address] BUN Normal 7-18 [facility] Comment on above: Result Comment: SHA ENT DISCHARGED-NO SPECIMEN REC'D Performed By: #### 5 7021-8, CMP, L500.4050, 2110-5, L700.6800, L100.0100 #### [facility] [address] [place], [address] BUN/CRE Normal 10-20 [facility] Comment on above: Result Comment: SHA ENT DISCHARGED-NO SPECIMEN REC'D Performed By: #### 5 7021-8, CMP, L500.4050, 2110-5, L700.6800, L100.0100 #### [facility] [address] [place], [address] CA,Total Normal 8.5-10.1 [facility] Comment on above: Result Comment: SHA ENT DISCHARGED-NO SPECIMEN REC'D Performed By: #### 5 7021-8, CMP, L500.4050, 2110-5, L700.6800, L100.0100 #### [facility] [address] [place], [address] CL Normal 98-107 [facility] Comment on above: Result Comment: SHA ENT DISCHARGED-NO SPECIMEN REC'D Performed By: #### 5 7021-8, CMP, L500.4050, 2110-5, L700.6800, L100.0100 #### [facility] [address] [place], [address] CO2 Normal 21.0-32.0 [facility] Comment on above: Result Comment: SHA ENT DISCHARGED-NO SPECIMEN REC'D Performed By: #### 5 7021-8, CMP, L500.4050, 2110-5, L700.6800, L100.0100 #### [facility] [address] [place], [address] CREAT,SERUM Normal 0.55-1.02 [facility] Comment on above: Result Comment: SHA ENT DISCHARGED-NO SPECIMEN REC'D Performed By: #### 5 7021-8, CMP, L500.4050, 2110-5, L700.6800, L100.0100 #### [facility] [address] [place], [address] EST GFR Normal >60 [facility] Comment on above: Result Comment: SHA ENT DISCHARGED-NO SPECIMEN REC'D Performed By: #### 5 7021-8, CMP, L500.4050, 2110-5, L700.6800, L100.0100 #### [facility] [address] [place], [address] EST GFR - AA Normal >60 [facility] Comment on above: Result Comment: SHA ENT DISCHARGED-NO SPECIMEN REC'D Performed By: #### 5 7021-8, CMP, L500.4050, 2110-5, L700.6800, L100.0100 #### [facility] [address] [place], [address] GAP Normal 5-15 [facility] Comment on above: Result Comment: SHA ENT DISCHARGED-NO SPECIMEN REC'D Performed By: #### 5 7021-8, CMP, L500.4050, 2110-5, L700.6800, L100.0100 #### [facility] [address] [place], [address] GLU Normal 74-106 [facility] Comment on above: Result Comment: SHA ENT DISCHARGED-NO SPECIMEN REC'D Performed By: #### 5 7021-8, CMP, L500.4050, 2110-5, L700.6800, L100.0100 #### [facility] [address] [place], [address] Potassium Normal 3.5-5.1 [facility] Comment on above: Result Comment: SHA ENT DISCHARGED-NO SPECIMEN REC'D Performed By: #### 5 7021-8, CMP, L500.4050, 2110-5, L700.6800, L100.0100 #### [facility] [address] [place], [address] T BILI Normal 0.20-1.00 [facility] Comment on above: Result Comment: SHA ENT DISCHARGED-NO SPECIMEN REC'D Performed By: #### 5 7021-8, CMP, L500.4050, 2110-5, L700.6800, L100.0100 #### [facility] [address] [place], [address] T PROT Normal 6.4-8.2 [facility] Comment on above: Result Comment: SHA ENT DISCHARGED-NO SPECIMEN REC'D Performed By: #### 5 7021-8, CMP, L500.4050, 2110-5, L700.6800, L100.0100 #### [facility] [address] [place], [address] Comprehensive Metabolic Profil Normal 136-145 [facility] Comment on above: Result Comment: SHA ENT DISCHARGED-NO SPECIMEN REC'D Performed By: #### 5 7021-8, CMP, L500.4050, 2110-5, L700.6800, L100.0100 #### [facility] [address] [place], [address] Emergency Department Summary on 04-16-2022 Emergency Department Summary [facility] Medical Records Department [address] [place] [address] Emergency Department Summary 04/16/22 MR#: [id number] Acct: [id number] Name: LAILA RAMEY Rep #: [id number] : 2000 21 From: Moises Nugent MD PCP: Status:PRE ER Location: ED HPI History of Present Illness Chief Complaint: Abd Pain Detail of Chief Complaint: Crampy abdominal pain Informant: patient Onset/Context/Timing Onset: Days Context: Sudden Onset Timing: Continuous and Waxes and wanes Quality: Crampy Location: Upper abdomen Current Severity: Mild Maximum Severity: Moderate Worsened by: Possibly menses Relieved by: Ibuprofen yesterday has not taken ibuprofen today Associated Symptoms Associated Symptoms: Mild nausea Narrative Narrative: Patient is a 21-year-old woman who presents with crampy abdominal pain. She denies food intolerance. She denies respiratory or cardiac symptoms. There is no known family history of cholelithiasis. She is presently on her menses. Menses started Saturday. She does get cramping pain with menses. She denies vaginal discharge. She denies diss urea, hematuria or frequency. Prior similar symptoms: No Recent Illness/Hospitalization : No PFSH PFSH Medical History Anxiety Depression Allergy/AdvReac Type Severity Reaction Status Date / Time No Known Allergies Allergy Verified 04/16/22 11:05 Family History no significant family his no significant family history Surgical History no surgical history no surgical history Social History (Updated 04/16/22 @ 11:[address] Moises Nugent MD) household members: family Smoking Status: Never smoker substance use type: does not use ROS ROS ED Constitutional Constitutional ED: Reports fever(s) and subjective; Denies chills, sweats or weight loss Eyes Eyes: Denies blurry vision, change in vision or diplopia ENT ENT ED: Denies ear pain, rhinorrhea or sore throat Cardiovascular Cardiovascular: Denies chest pain or palpitations Respiratory/Chest Respiratory/Chest: Denies cough, dyspnea or dyspnea on exertion Gastrointestinal Gastrointestinal: Reports abdominal pain and nausea; Denies constipation, diarrhea, melena or vomiting Genitourinary Genitourinary ED: Reports LMP (females 10-50) Details: Comment: (On menses.); Denies dysuria, hematuria or urinary frequency Musculoskeletal Musculoskeletal: Denies arthralgias, back pain, myalgias or neck pain Integumentary Denies abscess, Abrasions or rash Neurologic Neurologic: Denies paresthesias or weakness Hematologic/Lymphatic Hematologic/Lymphatic: Denies easy bleeding or easy bruising EXAM Physical Exam Const Vital Signs: 04/16/22 10:56 Temperature 98.1 F Temperature Source Oral Pulse Rate 61 Respiratory Rate 17 Blood Pressure 106/73 Blood Pressure Mean 84 Pulse Ox 99 Oxygen Delivery Method Room Air Positive well nourished and well developed General Appearance ED: well developed and NAD; Negative for cyanotic or diaphoretic HEENT Reports moist mucous membranes HEENT Narrative: Head is atraumatic normocephalic. Ears normal. Nares patent. Uvula is midline. There is no erythema or exudate the posterior pharynx. Eyes PERRL and EOMs intact bilaterally General Eye ED: Negative for pale conjunctiva or scleral icterus Neck no lymphadenopathy and supple Resp normal respiratory effort and clear to auscultation bilaterally Cardio regular rate, regular rhythm, S1 normal heart sound, S2 normal heart sound and no murmurs GI normal to inspection, nondistended, normoactive bowel sounds, non-tender, non-distended and no masses; Negative for hepatosplenomegaly Palpation: soft Back/Spine no CVA tenderness Extremity normal to inspection General Extremety ED: Negative for edema or tenderness General Extremity: Negative for edema Neuro oriented x3, CN's II-XII intact bilaterally and no sensory deficits noted Sensorium / Orientation: alert Psych mental status grossly normal Skin no rashes or lesions noted, no wounds and skin turgor normal MDM MDM MDM Narrative Medical decision making narrative: We will obtain test. Will obtain CBC to assess white count differential. Patient and father are refusing any blood work. Since patient has a benign exam and gets cramps when she is menstruating will allow patient to go home with appropriate home-going instructions Discharge Plan Triage Chief Complaint: Abd Pain ED Provider: Moises Nugent Dx/Rx/DC Orders Clinical Impression: Crampy pain associated with menses Instructions: ED MENSTRUAL CRAMPING Referrals: Maria C Sarmiento MD [Med Staff - Active Staff] - 3-5 Days if not improving Activity Restrictions/Additional Instructions: Take ibuprofen for menstrua (more content not included)... Normal [facility] ,Serum,hCG Quali.on 04-16-2022 HCG, SERUM QUAL Normal [facility] Comment on above: Result Comment: SHA ENT DISCHARGED-NO SPECIMEN REC'D Performed By: #### 5 7021-8, CMP, L500.4050, 2109-5, L700.6800, L100.0100 #### [facility] [address] [place], [address] INTERNAL QC OK? Normal [facility] Comment on above: Result Comment: SHA ENT DISCHARGED-NO SPECIMEN REC'D Performed By: #### 5 7021-8, CMP, L500.4050, 2109-5, L700.6800, L100.0100 #### [facility] [address] [place], [place], [id number] RECORD KIT LOT# Normal [facility] Comment on above: Result Comment: SHA ENT DISCHARGED-NO SPECIMEN REC'D Performed By: #### 5 7021-8, CMP, L500.4050, 2110-5, L700.6800, L100.0100 #### [facility] [address] [place], [address] Vital Signs Date Time Vital Sign Value Performing Clinician Facility 01-18-2025 13:23-0400 Body mass index (BMI) [Ratio] 24.47 kg/m2 Adriana Galeano APRN.SMELLER Work Phone: [facility] 01-18-2025 13:23-0400 Body temperature 98.49 [degF] Adriana Galeano APRN.SMELLER Work Phone: [facility] 01-18-2025 13:23-0400 Body weight 59.7 kg Adriana Galeano CROP DUSTER.SMELLER Work Phone: [facility] 01-18-2025 13:23-0400 Diastolic blood pressure 64 mm[Hg] Adriana Galeano CROP DUSTER.SMELLER Work Phone: [facility] 01-18-2025 13:23-0400 Heart rate 96 /min Adriana Galeano CROP DUSTER.SMELLER Work Phone: [facility] 01-18-2025 13:23-0400 Respiratory rate 16 /min Adriana Galeano CROP DUSTER.SMELLER Work Phone: [facility] 01-18-2025 13:23-0400 SaO2% (BldA) [Mass fraction] 98 % Adriana Galeano APRN.SMELLER Work Phone: [facility] 01-18-2025 13:23-0400 Systolic blood pressure 102 mm[Hg] Adriana Galeano CROP DUSTER.SMELLER Work Phone: [facility] 10-30-2024 10:03-0500 Body height 156.2 cm Anette Sheets DO Work Phone: [facility] 10-30-2024 10:03-0500 Body mass index (BMI) [Ratio] 22.31 kg/m2 Anette Sheets DO Work Phone: [facility] 10-30-2024 10:03-0500 Body temperature 98.01 [degF] Anette Sheets DO Work Phone: [facility] 10-30-2024 10:03-0500 Body weight 54.43 kg Anette Sheets DO Work Phone: [facility] 10-30-2024 10:03-0500 Diastolic blood pressure 60 mm[Hg] Anette Sheets DO Work Phone: [facility] 10-30-2024 10:03-0500 Heart rate 82 /min Anette Sheets DO Work Phone: [facility] 10-30-2024 10:03-0500 Respiratory rate 16 /min Anette Sheets DO Work Phone: [facility] 10-30-2024 10:03-0500 SaO2% (BldA) [Mass fraction] 97 % Anette Sheets DO Work Phone: [facility] 10-30-2024 10:03-0500 Systolic blood pressure 98 mm[Hg] Anette Sheets DO Work Phone: [facility] 07-16-2024 09:26-0500 Body mass index (BMI) [Ratio] 22.02 kg/m2 Aj Thorpe APRN.SMELLER Work Phone: [facility] 07-16-2024 09:26-0500 Body temperature 98.49 [degF] Aj Thorpe APRN.SMELLER Work Phone: [facility] 07-16-2024 09:26-0500 Body weight 54.6 kg Aj Thorpe APRN.SMELLER Work Phone: [facility] 07-16-2024 09:26-0500 Diastolic blood pressure 75 mm[Hg] Aj Maurilio CROP DUSTER.SMELLER Work Phone: [facility] 07-16-2024 09:26-0500 Heart rate 89 /min Aj Maurilio CROP DUSTER.SMELLER Work Phone: [facility] 07-16-2024 09:26-0500 Respiratory rate 16 /min Aj Maurilio CROP DUSTER.SMELLER Work Phone: [facility] 07-16-2024 09:26-0500 SaO2% (BldA) [Mass fraction] 98 % Aj Maurilio CROP DUSTER.SMELLER Work Phone: [facility] 07-16-2024 09:26-0500 Systolic blood pressure 106 mm[Hg] Aj Maurilio CROP DUSTER.SMELLER Work Phone: [facility] 07-13-2024 16:37-0500 Body mass index (BMI) [Ratio] 21.61 kg/m2 Adriana Galeano CROP DUSTER.SMELLER Work Phone: [facility] 07-13-2024 16:37-0500 Body temperature 98.49 [degF] Adriana Elamkattylina CROP DUSTER.SMELLER Work Phone: [facility] 07-13-2024 16:37-0500 Body weight 53.6 kg Adriana Galeano CROP DUSTER.SMELLER Work Phone: [facility] 07-13-2024 16:37-0500 Diastolic blood pressure 78 mm[Hg] Adriana Galeano CROP DUSTER.SMELLER Work Phone: [facility] 07-13-2024 16:37-0500 Heart rate 105 /min Adriana Galeano CROP DUSTER.SMELLER Work Phone: [facility] 07-13-2024 16:37-0500 Respiratory rate 18 /min Adriana Galeano CROP DUSTER.SMELLER Work Phone: [facility] 07-13-2024 16:37-0500 SaO2% (BldA) [Mass fraction] 100 % Adriana Galeano CROP DUSTER.SMELLER Work Phone: [facility] 07-13-2024 16:37-0500 Systolic blood pressure 110 mm[Hg] Adriana Galeano CROP DUSTER.SMELLER Work Phone: [facility] 06-11-2022 09:19-0400 Body temperature 98.71 [degF] Alexandra Praisler-Wood CROP DUSTER.SMELLER Work Phone: [facility] 06-11-2022 09:19-0400 Body weight 52.16 kg Alexandra Praisler-Wood CROP DUSTER.SMELLER Work Phone: [facility] 06-11-2022 09:19-0400 Diastolic blood pressure 64 mm[Hg] Alexandra Praisler-Wood CROP DUSTER.SMELLER Work Phone: [facility] 06-11-2022 09:19-0400 Heart rate 76 /min Alexandra Praisler-Wood CROP DUSTER.SMELLER Work Phone: [facility] 06-11-2022 09:19-0400 Respiratory rate 16 /min Alexandra Praisler-Wood CROP DUSTER.SMELLER Work Phone: [facility] 06-11-2022 09:19-0400 SaO2% (BldA) [Mass fraction] 100 % Alexandra Praisler-Wood CROP DUSTER.SMELLER Work Phone: [facility] 06-11-2022 09:19-0400 Systolic blood pressure 108 mm[Hg] Alexandra Praisler-Wood CROP DUSTER.[facility] Work Phone: [facility] 04-16-2022 11:35-0400 Diastolic blood pressure 74 mm[Hg] [facility] Work Phone: 04-16-2022 11:35-0400 Heart rate 62 /min [facility] Work Phone: 04-16-2022 11:35-0400 Respiratory rate 20 /min [facility] Work Phone: 04-16-2022 11:35-0400 SaO2% (BldA) [Mass fraction] 98 % [facility] Work Phone: 04-16-2022 11:35-0400 Systolic blood pressure 104 mm[Hg] [facility] Work Phone: 04-16-2022 10:56-0400 Body height 157.48 cm [facility] Work Phone: 04-16-2022 10:56-0400 Body mass index (BMI) [Ratio] 20.5 kg/m2 [facility] Work Phone: 04-16-2022 10:56-0400 Body temperature 98.1 [degF] [facility] Work Phone: 04-16-2022 10:56-0400 Body weight 51 kg [facility] Work Phone: 02-27-2022 13:38-0400 Body height 157.5 cm Anette Sheets DO Work Phone: [facility] 02-27-2022 13:38-0400 Body temperature 98.49 [degF] Anette Sheets DO Work Phone: [facility] 02-27-2022 13:38-0400 Body weight 48.99 kg Anette Sheets DO Work Phone: [facility] 02-27-2022 13:38-0400 Diastolic blood pressure 58 mm[Hg] Anette Sheets DO Work Phone: [facility] 02-27-2022 13:38-0400 Heart rate 93 /min Anette Sheets DO Work Phone: [facility] 02-27-2022 13:38-0400 SaO2% (BldA) [Mass fraction] 98 % Anette Sheets DO Work Phone: [facility] 02-27-2022 13:38-0400 Systolic blood pressure 96 mm[Hg] Anette Sheets DO Work Phone: [facility] Encounters Encounter Date Encounter Type Care Provider Facility Start: 01-18-2025 End: 01-18-2025 Office outpatient visit 25 minutes Adriana Galeano APRN.TIA Work Phone: [facility] Comment on above: URI with cough and c ongestion (Primary Dx) Start: 01-18-2025 End: 01-18-2025 ambulatory ANETTE C SHEETS Facility:[facility] Start: 10-30-2024 End: 10-30-2024 Patient encounter procedure Anette C Sheets DO Work Phone: [facility] Comment on above: Well adult exam (Maria Luisa mikayla Dx) Start: 10-30-2024 End: 10-30-2024 Patient encounter status Anette C Sheets DO Work Phone: [facility] Work Phone: Start: 10-30-2024 End: 10-30-2024 ambulatory ANETTE C SHEETS Facility:[facility] Start: 10-28-2024 End: 12-04-2024 Telephone encounter Anette C Sheets DO Work Phone: [facility] Comment on above: Patient Question Start: 07-24-2024 End: 07-24-2024 Telephone encounter Aj Thorpe APRN.SMELLER Work Phone: [address] [place] [address] Comment on above: Patient Question Start: 07-16-2024 End: 07-16-2024 ambulatory ANETTE C SHEETS Facility:[facility] Start: 07-16-2024 End: 07-16-2024 Patient encounter procedure Aj Thorpe APRN.CNP Work Phone: [facility] Comment on above: Laryngitis (Primary Dx); Subacute cough Start: 07-13-2024 End: 07-13-2024 Office outpatient visit 15 minutes Adriana Galeano APRN.SMELLER Work Phone: [facility] Comment on above: Sore throat (Primary Dx); Viral illness Start: 07-13-2024 End: 07-13-2024 ambulatory ANETTE C SHEETS Facility:[facility] Start: 03-19-2024 ambulatory Mikayla Spring RN NURSE CNA INSTRUCTOR Comment on above: Arm Pain Start: 10-01-2023 End: 10-01-2023 Subsequent hospital visit by physician Xr [facility] Work Phone: Radiology Comment on above: Subacute cough [R05. 2] Start: 06-11-2022 End: 06-11-2022 Patient encounter procedure Alexandra Meadows APRN.CNP Work Phone: [facility] Comment on above: Post-nasal drainage (Primary Dx); Acute cough Start: 04-16-2022 End: 04-16-2022 Emergency department patient visit [facility] Start: 02-27-2022 End: 02-27-2022 Patient encounter procedure Anette Reid DO Work Phone: [facility] Comment on above: Enuresis (Primary Dx ); NILAY (generalized anxiety disorder); Tic disorder Procedures Date Procedure Procedure Detail Performing Clinician Start: 07-13-2024 STREP A MOLECULAR (POC) Eula Ortega APRN.CNP Work Phone: Start: 10-01-2023 Radiologic exam ches t 2 views Eula Ortega APRN.CNP Work Phone: Start: 02-27-2022 Adult depression screening assessment Anette Reid DO Work Phone: Plan of Treatment Date Care Activity Detail Author Start: 10-30-2025 Anxiety Screening Anxiety Screening [facility] Comment on above: Postponed from 11/27 (Postponed To Appropriate Date) Start: 10-30-2025 Covid-19 Vaccine ( season) Covid-19 Vaccine ( season) [facility] Comment on above: Postponed from 05/03 (Declined at this time) Start: 10-30-2025 Depression Screening Depression Scre ening [facility] Comment on above: Postponed from 11/27 (Postponed To Appropriate Date) Start: 10-30-2025 GC (Gonorrhea) Scree pat (18-24) GC (Gonorrhea) Screening (18-24) [facility] Comment on above: Postponed from 11/27 (Declined at this time) Start: 10-30-2025 Hepatitis B Vaccine (1 of 3 - 19+ 3-dose series) Hepatitis B Vaccine (1 of 3 - 19+ 3-dose series) [facility] Comment on above: Postponed from 11/27 (Declined at this time) Start: 10-30-2025 Hepatitis C screening Hepatitis C Sc matthew [facility] Comment on above: Postponed from 11/27 (Declined at this time) Start: 10-30-2025 HIV screening HIV Screening [facility] Comment on above: Postponed from 11/27 (Declined at this time) Start: 10-30-2025 HPV Vaccine (1 - 3-d ose series) HPV Vaccine (1 - 3-dose series) [facility] Comment on above: Postponed from 11/27 (Declined at this time) Start: 10-30-2025 Meningococcal B Vacc ine (1 of 2 - Standard) Meningococcal B Vaccine (1 of 2 - Standard) [facility] Comment on above: Postponed from 11/27 (Declined at this time) Start: 10-30-2025 Screening for Chlamy micah trachomatis Chlamydia Screening (18-) [facility] Comment on above: Postponed from 11/27 (Declined at this time) Start: 10-30-2025 Screening for malign ant neoplasm of cervix Cervical Cancer Screening [facility] Comment on above: Postponed from 11/27 (Declined at this time) Start: 10-30-2025 Urine microalbumin profile DTaP,Tdap,Td Vaccine (1 - Tdap) [facility] Comment on above: Postponed from 11/27 (Declined at this time) Start: 05-03-2025 Influenza vaccination Influenz a Vaccine (Season Ended) [facility] Start: 03-01-2025 Influenza vaccination Influenza Vacc ine (#1) [facility] Comment on above: Postponed from 05/03 (Declined at this time) Start: 05-03-2024 Covid-19 Vaccine ( season) Covid-19 Vaccine ( season) [facility] Start: 05-03-2024 Covid-19 Vaccine ( season) Covid-19 Vaccine ( season) [facility] Start: 05-03-2024 Influenza vaccination Influenza Vacc ine (#1) [facility] Start: 09-02-2023 Behavioral Health Screening Behavioral Health Screening [facility] Start: 05-03-2023 Covid-19 Vaccine () Covid-19 Vaccine () [facility] Start: 02-27-2023 Adult depression screening assessment DEPRESSION SCREENING [facility] Start: 02-27-2023 COVID-19 VACCINE (3 - Booster for Pfizer series) COVID-19 VACCINE (3 - Booster for Pfizer series) [facility] Comment on above: Postponed from 06/13 (Declined at this time) Postponed from 03/08 (Declined at this time) Start: 2022 Screening for malign ant neoplasm of cervix Cervical Cancer Screening [facility] Start: 05-03-2022 Influenza vaccination INFLUENZA (#1) [facility] Start: 04-16-2022 [facility] Work Phone: Start: 02-27-2022 End: 04-29-2022 CBC panel - Blood by Automated count CBC Lab Routine Enuresis Expected: 02/27/2022, Expires: 04/29/2022 [facility] Work Phone: Comment on above: Expected: 02/27/2022 , Expires: 04/29/2022 Start: 02-27-2022 End: 04-29-2022 Comprehensive metabolic 2000 panel - Serum or Plasma COMP METABOLIC PANEL Lab Routine Enuresis Expected: 02/27/2022, Expires: 04/29/2022 [facility] Work Phone: Comment on above: Expected: 02/27/2022 , Expires: 04/29/2022 Start: 02-27-2022 End: 04-29-2022 Urinalysis complete panel - Urine UA WITH CULTURE IF INDICATED Lab Routine Enuresis Expected: 02/27/2022, Expires: 04/29/2022 [facility] Work Phone: Comment on above: Expected: 02/27/2022 , Expires: 04/29/2022 Start: 09-02-2021 DEPRESSION ASSESSMENT DEPRESSION ASS ESSMENT [facility] Start: 2020 Hepatitis B Vaccine (1 of 3 - 19+ 3-dose series) Hepatitis B Vaccine (1 of 3 - 19+ 3-dose series) [facility] Start: 2020 Urine microalbumin profile [facility] Start: 11-28-2019 Anxiety Screening Anxiety Screening [facility] Start: 11-28-2019 CHLAMYDIA SCREENING (18-24) CHLAMYDIA SCREENING (18-24) [facility] Start: 11-28-2019 Depression Screening Depression Scre ening [facility] Start: 11-28-2019 GC (GONORRHEA) SCREE PAT (18-24) GC (GONORRHEA) SCREENING (18-24) [facility] Start: 11-28-2019 HEPATITIS C SCREENING HEPATITIS C [facility] Start: 11-28-2019 Hepatitis C screening Hepatitis C [facility] Start: 11-28-2019 HIV SCREENING HIV SCREENING [facility] Start: 11-28-2019 HIV screening HIV Screening [facility] Start: 11-28-2019 Screening for Chlamy micah trachomatis Chlamydia Screening () [facility] Start: 2017 Meningococcal B Vacc ine: Consider Based On Risk (1 of 2 - Patient Seeks Protection) Meningococcal B Vaccine: Consider Based On Risk (1 of 2 - Patient Seeks Protection) [facility] Start: 2016 HPV Vaccine (1 - 3-d ose series) HPV Vaccine (1 - 3-dose series) [facility] Start: 11-28-2015 PEDS TO ADULT TRANSI TION ANNUAL ASSESSMENT PEDS TO ADULT TRANSITION ANNUAL ASSESSMENT [facility] Start: 2013 PEDS TO ADULT TRANSI TION INITIAL DISCUSSION PEDS TO ADULT TRANSITION INITIAL DISCUSSION [facility] Start: 2012 HPV VACCINE (1 - 2-d ose series) HPV VACCINE (1 - 2-dose series) [facility] Start: 11-28-2011 MENINGOCOCCAL B: Consider based on risk (1 of 2 - Risk Bexsero 2-dose series) MENINGOCOCCAL B: Consider based on risk (1 of 2 - Risk Bexsero 2-dose series) [facility] Start: 2001 HEPATITIS B (1 of 3 - 3-dose series) HEPATITIS B (1 of 3 - 3-dose series) [facility] Patient Education ED MENSTRUAL CRAMPING W [facility] Work Phone: Patient referral [facility] Work Phone: [facility] c Payers Date Payer Category Payer Private Health Insurance [id number] 2023 Medicaid [id number] 2023 Unknown [id number] 2019 [facility] Health [facility] PPO [id number] 2019-Present [phone] [address] [address] [place] [address] PPO [id number] 2019 Private Health Insurance [id number] Self-pay SELF PAY INSURANCE [id number] Social History Date Type Detail Facility Start: 02-27-2022 End: 06-11-2022 Tobacco smoking status NHIS Never smoked tobacco [facility] Start: 02-27-2022 End: 06-11-2022 Tobacco use and exposure Smokeless tobacco non-user [facility] Start: 02-27-2022 End: 01-18-2025 Alcohol intake Lifetime non-drinker (finding) [facility] Start: 02-27-2022 History SDOH Alcohol Frequency 1 [facility] Start: 2001 Sex Assigned At Not on file C [facility] Start: 02-17-2022 End: 06-11-2022 Exposure to SARS-CoV-2 (event) Not sure [facility] Start: 04-16-2022 Tobacco smoking stat us NHIS Unknown if ever smoked [facility] Work Phone: Start: 2001 Sex Assigned At Female W [facility] Work Phone: Start: 09-30-2022 End: 10-01-2023 History of Social function [facility] Start: 09-30-2022 End: 10-01-2023 Tobacco use panel [facility] Adult Depression Screening Assessment 0 [facility] Clinical Notes 02-27-2022 to 01-18-2025 Adriana Galeano APRN.SMELLER - 01/18/2025 1:35 PM EDTScurt, Anette Ramirez DO - 10/30/2024 10:13 AM ESTTelephone Encounter - Mikayla FayJASON - 10/30/2024 7:27 AM ESTPatient Instructions Note Date & Type Note Facility 01-18-2025 Note HNO ID: [id number] Author: ADRIANA GALEANO APRN.SMELLER Service: ? Author Type: Nurse Practitioner Type: Progress Notes Filed: 01/18/2025 13:46 Note Text: [facility] Subjective Laila Ramey is a 24 year old female. Patient presents with: Nasal Congestion: drainage, productive cough x 5 days HPI Nontoxic-appearing 24-year-old female presents urgent care chief complaint cough sinus drainage fatigue. Duration of symptoms 5 days. Associated symptoms listed above. Most bothersome symptom today is cough. OTC medications none. Sick contacts unknown. No chest pain shortness pleuritic pain. No fevers. Is not . Is not breast-feeding past medical history prescription medications allergies reviewed Review of Systems Constitutional: Negative for chills, diaphoresis, fatigue and fever. HENT: Positive for congestion, rhinorrhea and sore throat. Negative for drooling, ear discharge, ear pain, sinus pressure, sinus pain, sneezing and trouble swallowing. Eyes: Negative for pain, discharge, redness, itching and visual disturbance. Respiratory: Positive for cough. Negative for chest tightness, shortness of breath and wheezing. Cardiovascular: Negative for chest pain. Gastrointestinal: Negative for abdominal distention, abdominal pain, blood in stool, constipation, diarrhea, nausea and vomiting. Genitourinary: Negative for difficulty urinating and dysuria. Musculoskeletal: Negative for arthralgias, joint swelling, neck pain and neck stiffness. Skin: Negative for rash. Neurological: Positive for headaches. Negative for dizziness, weakness and numbness. Objective BP 102/64 Pulse 96 Temp 36.9 ?C (98.5 ?F) Resp 16 Wt 59.7 kg (131 lb 9.8 oz) SpO2 98% BMI 24.47 kg/m? Physical Exam Constitutional: Appearance: Normal appearance. HENT: Head: Normocephalic. Jaw: No trismus, tenderness, swelling or pain on movement. Right Ear: Tympanic membrane, ear canal and external ear normal. Left Ear: Tympanic membrane, ear canal and external ear normal. Nose: Congestion present. Mouth/Throat: Mouth: Mucous membranes are moist. Pharynx: Oropharynx is clear. Uvula midline. No oropharyngeal exudate or posterior oropharyngeal erythema. Eyes: Conjunctiva/sclera: Conjunctivae normal. Cardiovascular: Rate and Rhythm: Normal rate. Pulmonary: Effort: Pulmonary effort is normal. Breath sounds: Normal breath sounds. No wheezing, rhonchi or rales. Abdominal: Palpations: Abdomen is soft. Tenderness: There is no abdominal tenderness. There is no guarding or rebound. Musculoskeletal: General: Normal range of motion. Cervical back: Normal range of motion and neck supple. No edema or erythema. No pain with movement. Normal range of motion. Lymphadenopathy: Cervical: No cervical adenopathy. Skin: General: Skin is warm. Findings: No rash. Neurological: General: No focal deficit present. Mental Status: She is alert and oriented to person, place, and time. Mental status is at baseline. {ASSESSMENT/PLAN: 1. URI with cough and congestion - ICD9: 465.9, ICD10: J06.9 - Discussed viral etiology and rationale for treatment. - Symptomatic treatment with prn analgesia - Supportive care with fluids and rest No evidence of bacterial infection noted on today's assessment. Treat as viral etiology. Patient was educated on supportive therapies. Patient will follow up with primary care provider as needed. Patient was instructed to immediately proceed to emergency room for any new, worsening, or symptoms lasting longer than anticipated. The patient's clinical presentation is otherwise unremarkable at this time. Based on exam and clinical finding, the patient is stable for discharge. Plan of care was discussed with patient. Patient verbalizes understanding and agrees to plan of care. This note was generated using [employer] software. It may contain errors in wording, punctuation, or spelling. Adriana Galeano APRN.SMELLER History and Record Review Clinical information obtained from an independent historian. History obtained from or confirmed by: parent. External record(s) reviewed: prior outpatient record. Disposition The patient was discharged. OTC Medications were advised: Procedures [facility] 01-18-2025 History of Presen t illness Narrative [facility] Subjective Laila Ramey is a 24 year old female. Patient presents with: Nasal Congestion: drainage, productive cough x 5 days HPI Nontoxic-appearing 24-year-old female presents urgent care chief complaint cough sinus drainage fatigue. Duration of symptoms 5 days. Associated symptoms listed above. Most bothersome symptom today is cough. OTC medications none. Sick contacts unknown. No chest pain shortness pleuritic pain. No fevers. Is not . Is not breast-feeding past medical history prescription medications allergies reviewed Review of Systems Constitutional: Negative for chills, diaphoresis, fatigue and fever. HENT: Positive for congestion, rhinorrhea and sore throat. Negative for drooling, ear discharge, ear pain, sinus pressure, sinus pain, sneezing and trouble swallowing. Eyes: Negative for pain, discharge, redness, itching and visual disturbance. Respiratory: Positive for cough. Negative for chest tightness, shortness of breath and wheezing. Cardiovascular: Negative for chest pain. Gastrointestinal: Negative for abdominal distention, abdominal pain, blood in stool, constipation, diarrhea, nausea and vomiting. Genitourinary: Negative for difficulty urinating and dysuria. Musculoskeletal: Negative for arthralgias, joint swelling, neck pain and neck stiffness. Skin: Negative for rash. Neurological: Positive for headaches. Negative for dizziness, weakness and numbness. Objective BP 102/64 Pulse 96 Temp 36.9 C (98.5 F) Resp 16 Wt 59.7 kg (131 lb 9.8 oz) SpO2 98% BMI 24.47 kg/m Physical Exam Constitutional: Appearance: Normal appearance. HENT: Head: Normocephalic. Jaw: No trismus, tenderness, swelling or pain on movement. Right Ear: Tympanic membrane, ear canal and external ear normal. Left Ear: Tympanic membrane, ear canal and external ear normal. Nose: Congestion present. Mouth/Throat: Mouth: Mucous membranes are moist. Pharynx: Oropharynx is clear. Uvula midline. No oropharyngeal exudate or posterior oropharyngeal erythema. Eyes: Conjunctiva/sclera: Conjunctivae normal. Cardiovascular: Rate and Rhythm: Normal rate. Pulmonary: Effort: Pulmonary effort is normal. Breath sounds: Normal breath sounds. No wheezing, rhonchi or rales. Abdominal: Palpations: Abdomen is soft. Tenderness: There is no abdominal tenderness. There is no guarding or rebound. Musculoskeletal: General: Normal range of motion. Cervical back: Normal range of motion and neck supple. No edema or erythema. No pain with movement. Normal range of motion. Lymphadenopathy: Cervical: No cervical adenopathy. Skin: General: Skin is warm. Findings: No rash. Neurological: General: No focal deficit present. Mental Status: She is alert and oriented to person, place, and time. Mental status is at baseline. {ASSESSMENT/PLAN: 1. URI with cough and congestion - ICD9: 465.9, ICD10: J06.9 - Discussed viral etiology and rationale for treatment. - Symptomatic treatment with prn analgesia - Supportive care with fluids and rest No evidence of bacterial infection noted on today's assessment. Treat as viral etiology. Patient was educated on supportive therapies. Patient will follow up with primary care provider as needed. Patient was instructed to immediately proceed to emergency room for any new, worsening, or symptoms lasting longer than anticipated. The patient's clinical presentation is otherwise unremarkable at this time. Based on exam and clinical finding, the patient is stable for discharge. Plan of care was discussed with patient. Patient verbalizes understanding and agrees to plan of care. This note was generated using [employer] software. It may contain errors in wording, punctuation, or spelling. Adriana Galeano APRN.TIA History and Record Review Clinical information obtained from an independent historian. History obtained from or confirmed by: parent. External record(s) reviewed: prior outpatient record. Disposition The patient was discharged. OTC Medications were advised: Procedures documented in this encounter [facility] 10-30-2024 Note HNO ID: [id number] Author: ANETTE REID, DO Service: ? Author Type: Physician Type: Progress Notes Filed: 11/17/2024 19:21 Note Text: SUBJECTIVE: 23 year old female for annual checkup. I have fully reviewed the past medical, surgical, social and family history and updated the Histories section of [employer]. Pt is here with her fdc caregiver. She is not sexually active She has requested an OTC analgesic for headaches or menstrual cramping She has a history of wetting the bed, but that has resolved Pt does not want to get bloodwork. ALLERGIES No Known Allergies Current Outpatient Medications Medication Sig Dispense Refill ARIPiprazole (ABILIFY) 5 mg tablet Take 5 mg by mouth once daily. No current facility-administered medications for this visit. There is no problem list on file for this patient. Social History Tobacco Use Smoking status: Never Smokeless tobacco: Never Vaping Use Vaping status: Never Used Substance Use Topics Alcohol use: Never Drug use: Never History reviewed. No pertinent family history. Reviewed past medical history, family history and surgeries. All medications and supplements were reviewed with the patient. REVIEW OF SYSTEMS GENERAL: No weight loss, malaise or fevers HEENT: Negative for frequent or significant headaches, No changes in hearing or vision, no nose bleeds or other nasal problems NECK: Negative for lumps, goiter, pain and significant neck swelling RESPIRATORY: Negative for cough, hemoptysis, wheezing, COPD, dyspnea or shortness of breath CARDIOVASCULAR: Negative for chest pain, leg swelling, hypertension, CHF or palpitations GI: No nausea, vomiting, or diarrhea : No history of dysuria, frequency or incontinence MUSCULOSKELETAL: Negative for joint pain or swelling, back pain or muscle pain SKIN: Negative for lesions, rash, and itching PSYCH: Negative for sleep disturbance, mood disorder and recent psychosocial stressors HEMATOLOGY/LYMPHOLOGY: Negative for prolonged bleeding, bruising easily or swollen nodes ENDOCRINE: Negative for cold or heat intolerance, polyuria, polydipsia and goiter NEURO: No history of headaches, syncope, paralysis, seizures or tremors PHYSICAL EXAMINATION: BP 98/60 Pulse 82 Temp 36.7 ?C (98 ?F) Resp 16 Ht 156.2 cm (5' 1.5") Wt 54.4 kg (120 lb) SpO2 97% BMI 22.31 kg/m? General appearance: Well appearing, alert, in no acute distress, well-hydrated, well nourished. Skin: Skin color, texture, turgor normal, no suspicious rashes or lesions Head: Normocephalic, no masses, lesions, tenderness or abnormalities Eyes: Anicteric sclera. Pupils are equally round and reactive to light. Extraocular movements are intact. Ears: External ears normal, canals clear Nose/Sinuses: Nares normal, septum midline, mucosa normal, no drainage or sinus tenderness Oropharynx: Lips, mucosa, and tongue normal, teeth and gums normal, oropharynx normal Neck: Supple, no adenopathy; thyroid symmetric, normal size, no bruits Back: Normal exam Lungs: Lungs clear to auscultation. No wheezing, rhonchi, rales. Heart: RRR without murmur, gallop, or rubs. No ectopy Abdomen: Normal abdominal exam, Abdomen soft, non-tender. Bowel sounds normal. No masses, organomegaly Extremities: No deformities, edema, skin discoloration, clubbing or cyanosis. Good capillary refill. Musculoskeletal: No joint swelling, deformity, or tenderness Peripheral pulses: Normal Neuro: Gait normal. Reflexes normal and symmetric. Sensation grossly intact. ASSESSMENT/PLAN: 1. Well adult exam - ICD9: V70.0, ICD10: Z00.00 - Counseled on healthy diet and regular exercise Anette Reid DO [facility] 10-30-2024 History of Presen t illness Narrative SUBJECTIVE: 23 year old female for annual checkup. I have fully reviewed the past medical, surgical, social and family history and updated the Histories section of [employer]. Pt is here with her fdc caregiver. She is not sexually active She has requested an OTC analgesic for headaches or menstrual cramping She has a history of wetting the bed, but that has resolved Pt does not want to get bloodwork. ALLERGIES No Known Allergies Current Outpatient Medications Medication Sig Dispense Refill ARIPiprazole (ABILIFY) 5 mg tablet Take 5 mg by mouth once daily. No current facility-administered medications for this visit. There is no problem list on file for this patient. Social History Tobacco Use Smoking status: Never Smokeless tobacco: Never Vaping Use Vaping status: Never Used Substance Use Topics Alcohol use: Never Drug use: Never History reviewed. No pertinent family history. Reviewed past medical history, family history and surgeries. All medications and supplements were reviewed with the patient. REVIEW OF SYSTEMS GENERAL: No weight loss, malaise or fevers HEENT: Negative for frequent or significant headaches, No changes in hearing or vision, no nose bleeds or other nasal problems NECK: Negative for lumps, goiter, pain and significant neck swelling RESPIRATORY: Negative for cough, hemoptysis, wheezing, COPD, dyspnea or shortness of breath CARDIOVASCULAR: Negative for chest pain, leg swelling, hypertension, CHF or palpitations GI: No nausea, vomiting, or diarrhea : No history of dysuria, frequency or incontinence MUSCULOSKELETAL: Negative for joint pain or swelling, back pain or muscle pain SKIN: Negative for lesions, rash, and itching PSYCH: Negative for sleep disturbance, mood disorder and recent psychosocial stressors HEMATOLOGY/LYMPHOLOGY: Negative for prolonged bleeding, bruising easily or swollen nodes ENDOCRINE: Negative for cold or heat intolerance, polyuria, polydipsia and goiter NEURO: No history of headaches, syncope, paralysis, seizures or tremors PHYSICAL EXAMINATION: BP 98/60 Pulse 82 Temp 36.7 C (98 F) Resp 16 Ht 156.2 cm (5' 1.5") Wt 54.4 kg (120 lb) SpO2 97% BMI 22.31 kg/m General appearance: Well appearing, alert, in no acute distress, well-hydrated, well nourished. Skin: Skin color, texture, turgor normal, no suspicious rashes or lesions Head: Normocephalic, no masses, lesions, tenderness or abnormalities Eyes: Anicteric sclera. Pupils are equally round and reactive to light. Extraocular movements are intact. Ears: External ears normal, canals clear Nose/Sinuses: Nares normal, septum midline, mucosa normal, no drainage or sinus tenderness Oropharynx: Lips, mucosa, and tongue normal, teeth and gums normal, oropharynx normal Neck: Supple, no adenopathy; thyroid symmetric, normal size, no bruits Back: Normal exam Lungs: Lungs clear to auscultation. No wheezing, rhonchi, rales. Heart: RRR without murmur, gallop, or rubs. No ectopy Abdomen: Normal abdominal exam, Abdomen soft, non-tender. Bowel sounds normal. No masses, organomegaly Extremities: No deformities, edema, skin discoloration, clubbing or cyanosis. Good capillary refill. Musculoskeletal: No joint swelling, deformity, or tenderness Peripheral pulses: Normal Neuro: Gait normal. Reflexes normal and symmetric. Sensation grossly intact. ASSESSMENT/PLAN: 1. Well adult exam - ICD9: V70.0, ICD10: Z00.00 - Counseled on healthy diet and regular exercise Anette Reid DO documented in this encounter [facility] 10-30-2024 Telephone encounter Note Please help assist with scheduling appointment. Thank you. [facility] 10-30-2024 Miscellaneous Notes Please help assist with scheduling appointment. Thank you. Please call - I cannot put in orders because pt has not been seen in over 2 years. She will need to make an appt for me to give orders Anette Reid DO Mireille caregiver for patient left message requesting a prn order for either tylenol or advil for patient. Please advise. Nola Bhatti MA documented in this encounter [facility] 10-29-2024 Telephone encounter Note Please call - I cannot put in orders because pt has not been seen in over 2 years. She will need to make an appt for me to give orders Anette DO [place] [facility] 10-28-2024 Telephone encounter Note Mireille caregiver for patient left message requesting a prn order for either tylenol or advil for patient. Please advise. Nola Bhatti MA [facility] 07-24-2024 Telephone encounter Note Spoke with patient and advised that if she is still having persistent symptoms from what she was being seen for in [place] from 8 days ago that she needs to see her PCP to be reevaluated, and she states she no longer needs school note. Izzy Cottrell MA [facility] 07-24-2024 Miscellaneous Notes Spoke with patient and advised that if she is still having persistent symptoms from what she was being seen for in from 8 days ago that she needs to see her PCP to be reevaluated, and she states she no longer needs school note. Izzy Cottrell MA Patient was seen 8 days ago? No note. Either needs seen or may contact pcp. Pt is requesting school excuse for today. Please advise. Patient can pic up. documented in this encounter [facility] 07-24-2024 Telephone encounter Note Patient was seen 8 days ago? No note. Either needs seen or may contact pcp. [facility] Work Phone: 07-24-2024 Telephone encounter Note Pt is requesting school excuse for today. Please advise. Patient can pic up. [facility] 07-16-2024 Note HNO ID: [id number] Author: AJ THORPE APRN.TIA Service: ? Author Type: Nurse Practitioner Type: Progress Notes Filed: 07/16/2024 10:02 Note Text: Subjective HPI HPI Laila Ramey is a 23 year old female who presents today for CC of cough, loss of voice. This started few days ago. Has tried otc medication for relief. Symptoms are worsened by nothing. Negative strep 3 days ago. Nonsmoker. Denies possibility of being . Reports having all childhood vaccinations. .Patient presents with: Cough: With sore throat, congestion AND difficulty speaking x 2 weeks No past medical history on file. No past surgical history on file. ALLERGIES Patient has no known allergies. MEDICATIONS ARIPiprazole (ABILIFY) 5 mg tablet Take 5 mg by mouth once daily. No family history on file. Social History Tobacco Use Smoking status: Never Smokeless tobacco: Never Substance Use Topics Alcohol use: Never Drug use: Never Review of Systems Constitutional: Negative for fever. HENT: Positive for congestion and sore throat. Negative for ear pain and nosebleeds. Respiratory: Positive for cough. Negative for shortness of breath and wheezing. Musculoskeletal: Negative for neck pain. Objective Blood pressure 106/75, pulse 89, temperature 36.9 ?C (98.5 ?F), temperature source Left Tympanic, resp. rate 16, weight 54.6 kg (120 lb 5.9 oz), SpO2 98%. Physical Exam Constitutional: General: She is not in acute distress. Appearance: She is not toxic-appearing or diaphoretic. HENT: Head: Normocephalic and atraumatic. Comments: Notable laryngitis. Right Ear: Hearing, tympanic membrane, ear canal and external ear normal. Left Ear: Hearing, tympanic membrane, ear canal and external ear normal. Nose: Nose normal. Mouth/Throat: Pharynx: Uvula midline. No pharyngeal swelling, oropharyngeal exudate, posterior oropharyngeal erythema or uvula swelling. Eyes: General: Lids are normal. No scleral icterus. Right eye: No discharge. Left eye: No discharge. Conjunctiva/sclera: Conjunctivae normal. Pupils: Pupils are equal, round, and reactive to light. Neck: Trachea: Trachea normal. Cardiovascular: Rate and Rhythm: Normal rate and regular rhythm. Heart sounds: Normal heart sounds. Pulmonary: Effort: Pulmonary effort is normal. Breath sounds: Normal breath sounds. Musculoskeletal: Cervical back: Normal range of motion and neck supple. Lymphadenopathy: Cervical: No cervical adenopathy. Right cervical: No superficial cervical adenopathy. Left cervical: No superficial cervical adenopathy. Skin: Findings: No rash. Neurological: Mental Status: She is alert and oriented to person, place, and time. ASSESSMENT/PLAN: 1. Laryngitis - ICD9: 464.00, ICD10: J04.0 (primary diagnosis) Viral Try steroid F/u with pcp for continued s/s - PREDNISONE 20 MG TABLET 2. Subacute cough - ICD9: 786.2, ICD10: R05.2 Declines xray, try steroid. - XR CHEST 2V FRONTAL/LAT - declined. Aj Thorpe APRN.[facility] 07-16-2024 History of Presen t illness Narrative Subjective HPI HPI Laila Ramey is a 23 year old female who presents today for CC of cough, loss of voice. This started few days ago. Has tried otc medication for relief. Symptoms are worsened by nothing. Negative strep 3 days ago. Nonsmoker. Denies possibility of being . Reports having all childhood vaccinations. .Patient presents with: Cough: With sore throat, congestion & difficulty speaking x 2 weeks No past medical history on file. No past surgical history on file. ALLERGIES Patient has no known allergies. MEDICATIONS ARIPiprazole (ABILIFY) 5 mg tablet Take 5 mg by mouth once daily. No family history on file. Social History Tobacco Use Smoking status: Never Smokeless tobacco: Never Substance Use Topics Alcohol use: Never Drug use: Never Review of Systems Constitutional: Negative for fever. HENT: Positive for congestion and sore throat. Negative for ear pain and nosebleeds. Respiratory: Positive for cough. Negative for shortness of breath and wheezing. Musculoskeletal: Negative for neck pain. Objective Blood pressure 106/75, pulse 89, temperature 36.9 C (98.5 F), temperature source Left Tympanic, resp. rate 16, weight 54.6 kg (120 lb 5.9 oz), SpO2 98%. Physical Exam Constitutional: General: She is not in acute distress. Appearance: She is not toxic-appearing or diaphoretic. HENT: Head: Normocephalic and atraumatic. Comments: Notable laryngitis. Right Ear: Hearing, tympanic membrane, ear canal and external ear normal. Left Ear: Hearing, tympanic membrane, ear canal and external ear normal. Nose: Nose normal. Mouth/Throat: Pharynx: Uvula midline. No pharyngeal swelling, oropharyngeal exudate, posterior oropharyngeal erythema or uvula swelling. Eyes: General: Lids are normal. No scleral icterus. Right eye: No discharge. Left eye: No discharge. Conjunctiva/sclera: Conjunctivae normal. Pupils: Pupils are equal, round, and reactive to light. Neck: Trachea: Trachea normal. Cardiovascular: Rate and Rhythm: Normal rate and regular rhythm. Heart sounds: Normal heart sounds. Pulmonary: Effort: Pulmonary effort is normal. Breath sounds: Normal breath sounds. Musculoskeletal: Cervical back: Normal range of motion and neck supple. Lymphadenopathy: Cervical: No cervical adenopathy. Right cervical: No superficial cervical adenopathy. Left cervical: No superficial cervical adenopathy. Skin: Findings: No rash. Neurological: Mental Status: She is alert and oriented to person, place, and time. ASSESSMENT/PLAN: 1. Laryngitis - ICD9: 464.00, ICD10: J04.0 (primary diagnosis) Viral Try steroid F/u with pcp for continued s/s - PREDNISONE 20 MG TABLET 2. Subacute cough - ICD9: 786.2, ICD10: R05.2 Declines xray, try steroid. - XR CHEST 2V FRONTAL/LAT - declined. Aj Thorpe APRN.TIA documented in this encounter [facility] 07-13-2024 Instructions Adriana Galeano APRN.CNP - 07/13/2024 4:47 PM EST [facility] PATIENT INFO PHARYNGITIS OVERVIEW A sore throat (pharyngitis) is a common problem, and usually is caused by a viral or bacterial infection. Sore throat usually resolves on its own without complications in adults, although it is important to know when to seek medical attention. Viruses can cause a sore throat and other upper respiratory infections, such as the common cold. Sore throat caused by a virus is not treated with antibiotics, but instead may be treated with rest, pain medication, and other therapies aimed at relieving symptoms. Strep throat is a particular kind of pharyngitis that is caused by a bacterium known as group A streptococcus (GAS). Strep throat is treated with a course of antibiotics. SORE THROAT SYMPTOMS Viral pharyngitis - Most people with a sore throat have a virus. The most common viruses are those that cause upper respiratory infections, such as the common cold. Symptoms of a viral infection can include: A runny or congested nose Irritation or redness of the eyes Cough, hoarseness, or soreness in the roof of the mouth Some viruses cause a fever and can make you feel quite ill. Strep throat - Approximately 10 percent of adults with a sore throat have strep throat. Signs and symptoms of strep throat include the following: Pain in the throat Fever (temperature greater than 100.4 F or 38 C) Enlarged lymph glands in the neck No cough, runny nose, or irritation/redness of the eyes When to seek urgent help - See your doctor or nurse immediately if you have a sore throat along with any of the following: Difficulty breathing Skin rash Drooling because you cannot swallow Swelling of the neck or tongue Stiff neck or difficulty opening the mouth SORE THROAT DIAGNOSIS Most people with a sore throat get better without treatment. There is no specific treatment for a sore throat caused by usual cold viruses. Is it strep or not? - A combination of symptoms (fever, enlarged glands in the neck, white patches on your tonsils, and no cough) can help in determining if you have strep. If you have two or more symptoms, a rapid test or throat culture may be done. People with fewer than two symptoms usually do not need testing or treatment for strep throat. Rapid test - The rapid test determines if there are streptococcus bacteria on a throat swab. The test can be done in a clinician's office and the results are available within a few minutes. The test is accurate in most cases, although a small percentage of tests are falsely negative (the bacteria are present but the test is negative). Strep Confirmatory Test - involves swabbing the throat, sending the swab to a laboratory, and waiting 24 to 48 hours for the results. These Strep PCR tests are slightly more accurate than the rapid test. TREATMENT OF SORE THROAT Sore throat treatment - Antibiotics do not help throat pain caused by a virus and are not recommended. Sore throat caused by viral infections usually lasts four to five days. During this time, treatments to reduce pain may be helpful. Several therapies can help to relieve throat pain. Pain medication - You can treat your throat pain with a mild pain reliever such as acetaminophen (Tylenol ) or a non -steroidal anti-inflammatory agent such as ibuprofen or naproxen (Motrin or Aleve ). Oral rinses - Salt water gargles are an effective treatment for throat pain. It is not clear that salt water works to relieve pain, but it is unlikely to be harmful. Most recipes suggest 1/4 to 1/2 teaspoon of salt per one cup (8 ounces) of warm water. Sprays - Sprays containing topical anesthetics ( benzocaine, phenol) are available to treat sore throat. However, such sprays are no more effective than sucking on hard candy. Lozenges - A variety of lozenges (cough drops) are available to treat throat pain or relieve dryness. However, it is not clear that lozenges work any better than other forms of hard candy, which are generally less expensive. Other treatments - Other treatments that may help with throat pain include increase fluid intake and rest, sipping warm beverages (eg, honey or lemon tea, chicken soup), cold beverages, or eating cold or frozen desserts (eg, ice cream, popsicles).Replace your toothbrush, it may be harboring germs. Until the illness is resolved, do not share anything by mouth. Strep throat - Penicillin, or an antibiotic related to penicillin, is the treatment of choice for strep throat. A one time injection of penicillin is also available. People who are allergic to penicillin are given an alternate antibiotic. It is important to finish the entire course of treatment to completely eliminate the infection. If symptoms do not begin to improve or worsen by three days of antibiotic treatment, you should see your primary care provider. Return to work/school - If you have been diagnosed with strep throat, stay home from work or school until you have completed 24 hours of antibiotics. Within 24 hours of beginning antibiotic treatment, you will feel better and will be less contagious. If you have a sore throat (not diagnosed as strep), you may participate in your usual activities as soon as you feel well. What to do if symptoms don't improve:- If symptoms do not begin to improve within 5 to 7 days you should see your primary care provider. documented in this encounter [facility] 07-13-2024 Note HNO ID: [id number] Author: ADRINAA GALEANO APRN.CNP Service: ? Author Type: Nurse Practitioner Type: Progress Notes Filed: 07/13/2024 16:52 Note Text: Subjective HPI Nontoxic-appearing female presents urgent care chief complaint sore throat cough. Duration of symptoms 2 days. Associated symptoms listed above. Presents today for evaluation. Most prominent symptom today is pharyngitis. OTC medications none. Sick contact similar signs symptoms. Denies any difficulty fevers swallowing and secretion decreased range of motion of neck or trismus. Denies chance of . Is not breast-feeding. Past medical history prescription medications allergies reviewed. .Patient presents with: Sore Throat: ST and cough x 2 days History reviewed. No pertinent past medical history. No past surgical history on file. ALLERGIES Patient has no known allergies. MEDICATIONS ARIPiprazole (ABILIFY) 5 mg tablet Take 5 mg by mouth once daily. No family history on file. Social History Tobacco Use Smoking status: Never Smokeless tobacco: Never Substance Use Topics Alcohol use: Never Drug use: Never BP 110/78 Pulse 105 Temp 36.9 ?C (98.5 ?F) (Tympanic) Resp 18 Wt 53.6 kg (118 lb 2.7 oz) SpO2 100% BMI 21.61 kg/m? Review of Systems Constitutional: Negative for chills, fever and malaise/fatigue. HENT: Positive for sore throat. Negative for congestion, ear discharge, ear pain and sinus pain. Eyes: Negative for blurred vision, pain, discharge and redness. Respiratory: Positive for cough. Negative for hemoptysis, sputum production, shortness of breath, wheezing and stridor. Cardiovascular: Negative for chest pain. Gastrointestinal: Negative for abdominal pain, diarrhea, nausea and vomiting. Musculoskeletal: Negative for myalgias. Skin: Negative for itching and rash. Neurological: Negative for dizziness and headaches. Objective Physical Exam Constitutional: General: She is not in acute distress. Appearance: She is not diaphoretic. HENT: Head: Normocephalic. Jaw: No trismus, tenderness, swelling or pain on movement. Right Ear: Tympanic membrane, ear canal and external ear normal. Left Ear: Tympanic membrane, ear canal and external ear normal. Mouth/Throat: Mouth: Mucous membranes are moist. Pharynx: Oropharynx is clear. Uvula midline. No pharyngeal swelling, oropharyngeal exudate, posterior oropharyngeal erythema or uvula swelling. Tonsils: No tonsillar exudate or tonsillar abscesses. Eyes: Conjunctiva/sclera: Conjunctivae normal. Pupils: Pupils are equal, round, and reactive to light. Cardiovascular: Rate and Rhythm: Normal rate and regular rhythm. Heart sounds: Normal heart sounds. Pulmonary: Effort: Pulmonary effort is normal. No tachypnea, accessory muscle usage or respiratory distress. Breath sounds: Normal breath sounds. No stridor. No wheezing, rhonchi or rales. Abdominal: General: There is no distension. Palpations: Abdomen is soft. Tenderness: There is no abdominal tenderness. There is no guarding or rebound. Musculoskeletal: Cervical back: Normal range of motion and neck supple. No edema, erythema, rigidity or tenderness. No pain with movement. Normal range of motion. Lymphadenopathy: Cervical: No cervical adenopathy. Skin: General: Skin is warm and dry. Neurological: Mental Status: She is alert and oriented to person, place, and time. ASSESSMENT/PLAN: 1. Sore throat - ICD9: 462, ICD10: J02.9 (primary diagnosis) - STREP A MOLECULAR (POC) 2. Viral illness - ICD9: 079.99, ICD10: B34.9 - Discussed viral etiology and rationale for treatment. - Rapid strep negative in office today - Symptomatic treatment with prn analgesia - Supportive care with fluids and rest No evidence of bacterial infection. Treat as viral pharyngitis Patient was educated on supportive therapies. Patient will follow up with primary care provider as needed. Patient was instructed to immediately proceed to emergency room for any new, worsening, or symptoms lasting longer than anticipated. The patient's clinical presentation is otherwise unremarkable at this time. Based on exam and clinical finding, the patient is stable for discharge. Plan of care was discussed with patient. Patient verbalizes understanding and agrees to plan of care. This note was generated using [employer] software. It may contain errors in wording, punctuation, or spelling. Adriana Galeano APRN.[facility] 07-13-2024 History of Presen t illness Narrative Subjective HPI Nontoxic-appearing female presents urgent care chief complaint sore throat cough. Duration of symptoms 2 days. Associated symptoms listed above. Presents today for evaluation. Most prominent symptom today is pharyngitis. OTC medications none. Sick contact similar signs symptoms. Denies any difficulty fevers swallowing and secretion decreased range of motion of neck or trismus. Denies chance of . Is not breast-feeding. Past medical history prescription medications allergies reviewed. .Patient presents with: Sore Throat: ST and cough x 2 days History reviewed. No pertinent past medical history. No past surgical history on file. ALLERGIES Patient has no known allergies. MEDICATIONS ARIPiprazole (ABILIFY) 5 mg tablet Take 5 mg by mouth once daily. No family history on file. Social History Tobacco Use Smoking status: Never Smokeless tobacco: Never Substance Use Topics Alcohol use: Never Drug use: Never BP 110/78 Pulse 105 Temp 36.9 C (98.5 F) (Tympanic) Resp 18 Wt 53.6 kg (118 lb 2.7 oz) SpO2 100% BMI 21.61 kg/m Review of Systems Constitutional: Negative for chills, fever and malaise/fatigue. HENT: Positive for sore throat. Negative for congestion, ear discharge, ear pain and sinus pain. Eyes: Negative for blurred vision, pain, discharge and redness. Respiratory: Positive for cough. Negative for hemoptysis, sputum production, shortness of breath, wheezing and stridor. Cardiovascular: Negative for chest pain. Gastrointestinal: Negative for abdominal pain, diarrhea, nausea and vomiting. Musculoskeletal: Negative for myalgias. Skin: Negative for itching and rash. Neurological: Negative for dizziness and headaches. Objective Physical Exam Constitutional: General: She is not in acute distress. Appearance: She is not diaphoretic. HENT: Head: Normocephalic. Jaw: No trismus, tenderness, swelling or pain on movement. Right Ear: Tympanic membrane, ear canal and external ear normal. Left Ear: Tympanic membrane, ear canal and external ear normal. Mouth/Throat: Mouth: Mucous membranes are moist. Pharynx: Oropharynx is clear. Uvula midline. No pharyngeal swelling, oropharyngeal exudate, posterior oropharyngeal erythema or uvula swelling. Tonsils: No tonsillar exudate or tonsillar abscesses. Eyes: Conjunctiva/sclera: Conjunctivae normal. Pupils: Pupils are equal, round, and reactive to light. Cardiovascular: Rate and Rhythm: Normal rate and regular rhythm. Heart sounds: Normal heart sounds. Pulmonary: Effort: Pulmonary effort is normal. No tachypnea, accessory muscle usage or respiratory distress. Breath sounds: Normal breath sounds. No stridor. No wheezing, rhonchi or rales. Abdominal: General: There is no distension. Palpations: Abdomen is soft. Tenderness: There is no abdominal tenderness. There is no guarding or rebound. Musculoskeletal: Cervical back: Normal range of motion and neck supple. No edema, erythema, rigidity or tenderness. No pain with movement. Normal range of motion. Lymphadenopathy: Cervical: No cervical adenopathy. Skin: General: Skin is warm and dry. Neurological: Mental Status: She is alert and oriented to person, place, and time. ASSESSMENT/PLAN: 1. Sore throat - ICD9: 462, ICD10: J02.9 (primary diagnosis) - STREP A MOLECULAR (POC) 2. Viral illness - ICD9: 079.99, ICD10: B34.9 - Discussed viral etiology and rationale for treatment. - Rapid strep negative in office today - Symptomatic treatment with prn analgesia - Supportive care with fluids and rest No evidence of bacterial infection. Treat as viral pharyngitis Patient was educated on supportive therapies. Patient will follow up with primary care provider as needed. Patient was instructed to immediately proceed to emergency room for any new, worsening, or symptoms lasting longer than anticipated. The patient's clinical presentation is otherwise unremarkable at this time. Based on exam and clinical finding, the patient is stable for discharge. Plan of care was discussed with patient. Patient verbalizes understanding and agrees to plan of care. This note was generated using [employer] software. It may contain errors in wording, punctuation, or spelling. Adriana Galeano APRN.[facility] documented in this encounter [facility] 03-19-2024 Telephone encounter Note Reason for Call: Hair loss after bleaching and arm pain. Outcome: Patient was advised to call PCP office when open to provide an update and to discuss hair loss. Reason for Disposition Caused by strained muscle Answer Assessment - Initial Assessment Questions 1. ONSET: 0600 2. LOCATION: upper left arm pain 3. PAIN: described as intermittent when stretching, rated 5-6/10, unable to describe 4. WORK OR EXERCISE: none 5. CAUSE: because she bleached hair yesterday 6. OTHER SYMPTOMS: a lot of hair loss noted after bleaching 7. : no, LMP last month Protocols used: Arm [id number] [facility] 03-19-2024 Miscellaneous Notes Reason for Call: Hair loss after bleaching and arm pain. Outcome: Patient was advised to call PCP office when open to provide an update and to discuss hair loss. Reason for Disposition Caused by strained muscle Answer Assessment - Initial Assessment Questions 1. ONSET: 599 2. LOCATION: upper left arm pain 3. PAIN: described as intermittent when stretching, rated 5-6/10, unable to describe 4. WORK OR EXERCISE: none 5. CAUSE: because she bleached hair yesterday 6. OTHER SYMPTOMS: a lot of hair loss noted after bleaching 7. : no, LMP last month Protocols used: Arm [id number] documented in this encounter [facility] 10-01-2023 History of Presen t illness Narrative Radiology Service Progress Note PATIENT NAME: Laila Ramey DATE OF SERVICE: October 01, 2023 TIME: 2:42 PM PATIENT IDENTITY VERIFICATION COMPLETED USING TWO (2) IDENTIFIERS: Name and Date of confirmed by patient verbally. FALL SCREENING: Has the patient had 2 falls in the last year or 1 fall with injury or currently using an Ambulatory Assistive Device (Walker, Cane, Wheelchair, Crutches, etc.)? No PATIENT GENDER DATA: Female. status: : No status: NO. PATIENT RELEVANT IMPLANT DATA REVIEWED: Yes PATIENT PRESENTS WITH AN IMPLANTABLE OR ATTACHED DEVELOPMENT INTERN: No RADIOLOGY DEPARTMENT: General X-ray: Exam(s) Completed: Chest X-Ray PERIPHERAL IV DATA: Not applicable SIGNED BY: RT José Miguel(R) October 01, 2023 2:42 PM documented in this encounter [facility] 06-11-2022 History of Presen t illness Narrative Subjective Cough Associated symptoms include sore throat. Pertinent negatives include no chest pain, no chills and no shortness of breath. Laila Ramey is a 21 year old female who presents with a cough and sore throat for past 2 months. She states she has had nasal congestion and drainage as well. She notices the cough mostly when she eats or when she lies down at night. She thought it may be due to allergies and has been taking allergy medication without improvement. She denies fever or shortness of breath. She has not had any known sick contacts. Review of Systems Constitutional: Negative for chills and fever. HENT: Positive for congestion and sore throat. Respiratory: Positive for cough. Negative for shortness of breath. Cardiovascular: Negative for chest pain. BP 108/64 Pulse 76 Temp 37.1 C (98.7 F) Resp 16 Wt 52.2 kg (115 lb) SpO2 100% BMI 21.03 kg/m No past medical history on file. No past surgical history on file. ALLERGIES Patient has no known allergies. MEDICATIONS ARIPiprazole (ABILIFY) 5 mg tablet Take 5 mg by mouth once daily. amoxicillin-clavulanic acid (AUGMENTIN) 875-125 mg per tablet Take 1 tablet by mouth twice daily for 7 days. No family history on file. Social History Tobacco Use Smoking status: Never Smokeless tobacco: Never Substance Use Topics Alcohol use: Never Drug use: Never Objective Physical Exam Vitals and nursing note reviewed. Constitutional: Appearance: Normal appearance. HENT: Right Ear: Tympanic membrane, ear canal and external ear normal. Left Ear: Tympanic membrane, ear canal and external ear normal. Nose: Mucosal edema, congestion and rhinorrhea present. Mouth/Throat: Pharynx: Oropharynx is clear. Uvula midline. No pharyngeal swelling, oropharyngeal exudate or posterior oropharyngeal erythema. Tonsils: No tonsillar exudate or tonsillar abscesses. Cardiovascular: Rate and Rhythm: Normal rate and regular rhythm. Heart sounds: Normal heart sounds. Pulmonary: Effort: Pulmonary effort is normal. No respiratory distress. Breath sounds: Normal breath sounds. No wheezing or rales. Musculoskeletal: Cervical back: Neck supple. Lymphadenopathy: Cervical: No cervical adenopathy. Skin: General: Skin is warm and dry. Findings: No erythema or rash. Neurological: Mental Status: She is alert. ASSESSMENT/PLAN: 1. Post-nasal drainage - ICD9: 473.9, ICD10: R09.82 (primary diagnosis) - Will begin treatment with Augmentin 875 mg PO BID for 7 days - Supportive care with plenty of fluids, rest, and analgesia prn. - AMOXICILLIN 875 MG-POTASSIUM CLAVULANATE 125 MG TABLET 2. Acute cough - ICD9: 786.2, ICD10: R05.1 - recommended xray today since cough has been present for 2 months; which her father does not feel is necessary - may take mucinex for cough which can be purchased over the counter at the pharmacy. - Follow-up with your PCP in 3-5 days if symptoms have not improved or sooner if symptoms worsen - Discussed red flags and need for immediate medical evaluation if any occur. - Discussed supportive care treatment with fluids, rest and analgesia. - Discussed expected course of illness Alexandra Meadows APRN.CNP documented in this encounter [facility] 06-11-2022 Instructions Alexandra Meadows APRN.SMELLER - 06/11/2022 9:49 AM EDT ASSESSMENT/PLAN: 1. Post-nasal drainage - ICD9: 473.9, ICD10: R09.82 (primary diagnosis) - Will begin treatment with Augmentin 875 mg PO BID for 7 days - Supportive care with plenty of fluids, rest, and analgesia prn. - AMOXICILLIN 875 MG-POTASSIUM CLAVULANATE 125 MG TABLET 2. Acute cough - ICD9: 786.2, ICD10: R05.1 - recommended xray today since cough has been present for 2 months; which her father does not feel is necessary - may take mucinex for cough which can be purchased over the counter at the pharmacy. - Follow-up with your PCP in 3-5 days if symptoms have not improved or sooner if symptoms worsen - Discussed red flags and need for immediate medical evaluation if any occur. - Discussed supportive care treatment with fluids, rest and analgesia. - Discussed expected course of illness Alexandra Meadows APRN.SMELLER COUGH: The body has a cough reflex which helps expel mucous secretions and irritants from the lung and airway passages. Cough spasms are periods of continuous coughing lasting several minutes. Most coughs is caused by virus infections which may last for up to 2-3 weeks. Coughing helps to protect the lung from pneumonia. A persistent cough lasting longer than 4-6 weeks requires medical evaluation by your primary care doctor. Treatment of cough includes measures to loosen the cough and thin the mucous. Warm liquids, cough drops, and nonprescription cough medicine may help reduce dry hacking cough. Use a humidifier if necessary as dry air can make coughs worse. Ultrasonic humidifiers are especially useful as they kill molds and many bacteria. Some cough medicines have antihistamines, decongestants, or alcohol in them; there is no proof that any of these help control cough. Prescription cough medicine or those with dextromethorphan (DM) should be reserved for dry coughs that prevent sleep or cause spasms or chest pain. Avoid any exposure to cigarette smoke as this will worsen the cough or make it last much longer. Call your doctor right away if you or your child have increased breathing difficulty, a high fever, a cough that lasts longer than 3 weeks, or other serious complaints. documented in this encounter [facility] 02-27-2022 Instructions Anette Reid DO - 02/27/2022 2:18 PM EDT Please wait until we call you with Laila's test results. If they are normal, I would recommend that you call Dr. Aguayo about stopping the abilify and putting Laila on a different medication to see if that stops the bedwetting. documented in this encounter [facility] 02-27-2022 History of Presen t illness Narrative SUBJECTIVE: 21 year old female here with her mom to establish. I have fully reviewed the past medical, surgical, social and family history and updated the Histories section of [facility]. She moved here with her mother in 2019 She lived in [place], [place] and here for 3 years. She has been experiencing bedwetting. She has been wetting the bed every night for the last few months She had a few occurrences of wetting the bed a few years ago, but that went away She dances and listens to music all day long and her mother believes she is very tired and that is why she is wetting the bed She takes abilify 5 mg once daily which is prescribed by Dr. Aguayo for anxiety She has been on abilify for 5-6 years She uses the restroom before she goes to bed so that she will not urinate in the bed [facility] 02/24/22 ALLERGIES No Known Allergies Current Outpatient Medications Medication Sig Dispense Refill ARIPiprazole (ABILIFY) 5 mg tablet Take 5 mg by mouth once daily. No current facility-administered medications for this visit. There is no problem list on file for this patient. Social History Tobacco Use Smoking status: Never Smoker Smokeless tobacco: Never Used Substance Use Topics Alcohol use: Never Drug use: Never History reviewed. No pertinent family history. Reviewed past medical history, family history and surgeries. All medications and supplements were reviewed with the patient. REVIEW OF SYSTEMS GENERAL: No weight loss, malaise or fevers HEENT: Negative for frequent or significant headaches, No changes in hearing or vision, no nose bleeds or other nasal problems NECK: Negative for lumps, goiter, pain and significant neck swelling RESPIRATORY: Negative for cough, hemoptysis, wheezing, COPD, dyspnea or shortness of breath CARDIOVASCULAR: Negative for chest pain, leg swelling, hypertension, CHF or palpitations GI: No nausea, vomiting, or diarrhea : positive for bedwetting, no history of dysuria, [employer] B[employer]KE [employer]GER: periods are regular. Negative for abnormal vaginal bleeding, abnormal vaginal discharge MUSCULOSKELETAL: Negative for joint pain or swelling, back pain or muscle pain SKIN: Negative for lesions, rash, and itching PSYCH: Negative for sleep disturbance, mood disorder and recent psychosocial stressors HEMATOLOGY/LYMPHOLOGY: Negative for prolonged bleeding, bruising easily or swollen nodes ENDOCRINE: Negative for cold or heat intolerance, polyuria, polydipsia and goiter NEURO: No history of headaches, syncope, paralysis, seizures or tremors PHYSICAL EXAMINATION: General appearance: Well appearing, alert, in no acute distress, well-hydrated, well nourished. Skin: Skin color, texture, turgor normal, no suspicious rashes or lesions Head: Normocephalic, no masses, lesions, tenderness or abnormalities Eyes: Anicteric sclera. Pupils are equally round and reactive to light. Extraocular movements are intact. Ears: External ears normal, canals clear Nose/Sinuses: Nares normal, septum midline, mucosa normal, no drainage or sinus tenderness Oropharynx: Lips, mucosa, and tongue normal, teeth and gums normal, oropharynx normal Neck: Supple, no adenopathy; thyroid symmetric, normal size, no bruits Back: Normal exam Lungs: Lungs clear to auscultation. No wheezing, rhonchi, rales. Heart: RRR without murmur, gallop, or rubs. No ectopy Abdomen: Normal abdominal exam, Abdomen soft, non-tender. Bowel sounds normal. No masses, organomegaly Extremities: No deformities, edema, skin discoloration, clubbing or cyanosis. Good capillary refill. Musculoskeletal: No joint swelling, deformity, or tenderness Peripheral pulses: Normal Neuro: frequent eye blinking, gait normal. Reflexes normal and symmetric. Sensation grossly intact. ASSESSMENT/PLAN: 1. Enuresis - ICD9: 788.30, ICD10: R32 (primary diagnosis) Possibly due to abilify as this can be a side effect of this medication. If psychiatrist does not believe this is the cause, will refer pt to urologist for further evaluation. - CBC - COMP METABOLIC PANEL - UA WITH CULTURE IF INDICATED 2. NILAY (generalized anxiety disorder) - ICD9: 300.02, ICD10: F41.1 Pt is on abilify, may be contributing to nocturnal enuresis. Mom and patient advised to consult Dr. Aguayo to see if medication can be adjusted or changed to resolve this issue 3. Tic disorder - ICD9: 307.20, ICD10: F95.9 Chronic - pt sees psychiatrist Anette Reid DO documented in this encounter [facility] Evaluation note Diagnosis Enuresis- Primary Unspecified urinary incontinence NILAY (generalized anxiety disorder) Generalized anxiety disorder Tic disorder Tic disorder, unspecified [facility] noteNo assessment information availableWSelect Medical [facility] Work Phone: Evaluation note* Diagnosis Post-nasal drainage- Primary Unspecified sinusitis (chronic) Acute cough [facility]* Diagnosis Subacute cough Cough documented in this encounter [facility] note* Diagnosis Sore throat- Primary Acute pharyngitis Viral illness Unspecified viral infection, in conditions classified elsewhere and of unspecified site documented in this encounter [facility] note* Diagnosis Laryngitis- Primary Acute laryngitis, without mention of obstruction Subacute cough Cough documented in this encounter [facility] note* Diagnosis Well adult exam- Primary Routine general medical examination at a health care facility documented in this encounter [facility] note* Diagnosis URI with cough and congestion- Primary [facility] Additional Instructions [facility] for [facility] Work Phone: Chief Complaint and Reason for Visit Chief Complaint ABDOMINAL PAIN Advance Directives No Advanced Directives Records Found Advance Directive Response Recorded Date/ Time Living Will No April 16 2 11:03am Power of Continuous Mining Machine Coal [employer]er No April 16 022 11:03am Summary Purpose Family History No Family History Records FoundNo Family History Records FoundNo Family History Records Found Additional Source Comments Source Comments (unrecognize d section and content) In the event this informatio n is protected by the Federal Confidentiality of Alcohol and Drug Abuse Patient Records regulations: The Federal rules restrict any use of the information to criminally investigate or prosecute any alcohol or drug abuse patient.[facility] the event this information is protected by the Federal Confidentiality of Alcohol and Drug Abuse Patient Records regulations: The Federal rules restrict any use of the information to criminally investigate or prosecute any alcohol or drug abuse patient.[facility] the event this information is protected by the Federal Confidentiality of Alcohol and Drug Abuse Patient Records regulations: The Federal rules restrict any use of the information to criminally investigate or prosecute any alcohol or drug abuse patient.[facility] the event this information is protected by the Federal Confidentiality of Alcohol and Drug Abuse Patient Records regulations: The Federal rules restrict any use of the information to criminally investigate or prosecute any alcohol or drug abuse patient.[facility] the event this information is protected by the Federal Confidentiality of Alcohol and Drug Abuse Patient Records regulations: The Federal rules restrict any use of the information to criminally investigate or prosecute any alcohol or drug abuse patient.[facility] the event this information is protected by the Federal Confidentiality of Alcohol and Drug Abuse Patient Records regulations: The Federal rules restrict any use of the information to criminally investigate or prosecute any alcohol or drug abuse patient.[facility] the event this information is protected by the Federal Confidentiality of Alcohol and Drug Abuse Patient Records regulations: The Federal rules restrict any use of the information to criminally investigate or prosecute any alcohol or drug abuse patient.[facility] Center[facility] the event this information is protected by the Federal Confidentiality of Alcohol and Drug Abuse Patient Records regulations: The Federal rules restrict any use of the information to criminally investigate or prosecute any alcohol or drug abuse patient.[facility] the event this information is protected by the Federal Confidentiality of Alcohol and Drug Abuse Patient Records regulations: The Federal rules restrict any use of the information to criminally investigate or prosecute any alcohol or drug abuse patient.[facility] the event this information is protected by the Federal Confidentiality of Alcohol and Drug Abuse Patient Records regulations: The Federal rules restrict any use of the information to criminally investigate or prosecute any alcohol or drug abuse patient.[facility] Reason for Visit (unrecogniz ed section and content) Reason Comments Establish Care bed wetting at night . Reason Comments Cough sore throat x months Reason Comments Arm Pain Reason Comments Sore Throat ST and cough x 2 day s Reason Comments Cough With sore throat, co ngestion & difficulty speaking x 2 weeks Reason Comments Patient Question Reason Comments Well Adult Reason Comments Nasal Congestion drainage, productive cough x 5 days Care Teams (unrecognized sec tion and content) Food Service Clerk Relationship Specialty Start Date End Date Anette Reid DO [address], [place] [id number] PCP - General Family Practice 02/27/22 Food Service Clerk Relationship Specialty Start Date End Date Anette Reid DO [address], [place] [id number] PCP - General Family Medicine 02/27/22 Food Service Clerk Relationship Specialty Start Date End Date Anette Reid DO [address], [place] [id number] PCP - General Family Medicine 02/27/22 Food Service Clerk Relationship Specialty Start Date End Date Anette Reid DO [address] [place] [address] PCP - General Family Medicine 02/27/22 Food Service Clerk Relationship Specialty Start Date End Date Anette Reid DO [address], [place] [id number] PCP - General Family Medicine 02/27/22 Food Service Clerk Relationship Specialty Start Date End Date Anette Reid DO [address], [place] [id number] PCP - General Family Medicine 02/27/22 Food Service Clerk Relationship Specialty Start Date End Date Anette Reid DO [address] [place] [address] PCP - General Family Medicine 02/27/22 Food Service Clerk Relationship Specialty Start Date End Date Anette Reid DO [address] [place] [address] PCP - General Family Medicine 02/27/22 Goals (unrecognized section and content) Goals may be documented in a n alternate section INFORMATION SOURCE (unrecogn ized section and content) DATE CREATED AUTHOR 04/26/2022 [facility] DATE CREATED AUTHOR AUTHOR'S ORGANIZ ATION 12/07/2024 [facility] DATE CREATED AUTHOR AUTHOR'S ORGANIZ ATION 01/19/2025 [facility] FOR RECORDS PERTAINING TO PATIENTS WHO ARE OR HAVE BEEN ENROLLED IN A CHEMICAL DEPENDENCY/SUBSTANCEABUSE PROGRAM, SOME INFORMATION MAY BE OMITTED. This clinical summary was aggregated from multiple sources. Caution should be exercised in using it in the provision of clinical care. This summary normalizes information from multiple sources, and as a consequence, information in this document may materially change the coding, format and clinical context of patient data. In addition, data may be omitted in some cases. CLINICAL DECISIONS SHOULD BE BASED ON THE PRIMARY CLINICAL RECORDS. [employer] provides no warranty or guarantee of the accuracy or completeness of information in this document.
== END | disposition home or self-care (01) ==
LOC: CT 17:33
DX: R22.1 Localized swelling, mass and lump, neck (principal)
CPT/HCPCS: 70491; Q9967; A4216